=== PATIENT | female | born 1995 | race Caucasian/White ===

== ENCOUNTER 2021-10-03 15:41 | Outpatient (CLI) | payer BC, SELFPAY ==
[2021-10-03 18:48] LABS: TSH With Reflex to FT4* 0.598 uIU/mL (0.270-4.200)
[2021-10-03 18:49] LABS: Hepatitis B Surface Antigen* Negative (Negative)
[2021-10-03 19:13] LABS: HIV 1/2/P24 Combo Screen* Negative (Negative); Hepatitis C Virus Antibody* Negative (Negative)
[2021-10-03 19:17] LABS: Chlamydia DNA Amplified* NOT DETECTED (No Detected); GC DNA Amplified* NOT DETECTED (No Detected)
[2021-10-05 14:44] LABS: Rubella Antibody IgG 30.5 IU/mL
[2021-10-05 19:27] LABS: Rapid Plasma Reagin (RPR) Non Reactive (Non Reactive)
== END 2021-10-03 15:42 | disposition home or self-care (01) ==
PROVIDERS: Visit Provider Advanced Practice Midwife
DX: Z34.91 Encounter for supervision of normal pregnancy, unspecified, first trimester (principal); Z3A.11 11 weeks gestation of pregnancy
CPT/HCPCS: 76801; 76817; 84443; 86592; 86703; 86762; 86787; 86803; 86850; 86900; 86901; 87086; 87340; 87491; 87591

== ENCOUNTER 2021-12-04 14:16 | Outpatient (CLI) | payer BC, SELFPAY ==
--- OUTSIDE RECORDS SUMMARY | 2021-12-04 14:18 | XMS_ITS | Clinical Summary ---
:1995 Author Organization [facility] [place] [address] Care Team Providers Name Role Phone Unavailable Primary Care Provider Unavailable Allergies No known active allergies Medications Medication Sig Dispensed Refills Start Date End Date Status NebulizersIndications: As directed. For home use. Length of need: lifetime 1 Kit 0 11/19/2010 Active Unspecified asthma(493.90) Portable nebulizer with robin akilah option for travel/events like dance methylphenidate Take 1 tablet by 0 07/05/2012 Active (CONCERTA) 54 mg ER mouth once daily. tablet etonogestrel subdermal Inject 1 Device 1 Device 0 12/10/2012 Active implant (NEXPLANON) 68 subdermal one mg implantIndications: time. Nexplanon insertion montelukast (SINGULAIR) Take 1 tablet by 90 tablet 3 3 Active 10 mg tablet mouth at bedtime. fluticasone-salmeterol Inhale 1 Puff by 1 Inhaler 5 01/19/2013 Active (ADVAIR DISKUS) 250-50 mouth every 12 mcg/Dose diskus inhaler hours. albuterol (PROVENTIL) Inhale 3 mL via a 1 box 0 03/14/2013 Active 0.083 % neb nebulizer every 4 solutionIndications: hours if needed Unspecified for Shortness Of asthma(493.90) Breath. albuterol HFA Inhale 2 Puffs by 2 Inhaler 0 03/14/2013 Active (PRO-AIR,VENTOLIN,PROVE mouth 4 times NTIL) 90 mcg/actuation daily if needed. inhaler predniSONE (DELTASONE) Take 1 tablet by 0 03/12/2013 Active 20 mg tablet mouth 2 times daily with meals. Active Problems Problem Noted Date Attention deficit disorder without mention of hyperact ivity 11/03/2012 Adjustment disorder with mixed anxiety and depressed m ood 11/03/2012 Unspecified constipation 08/02/2007 Unspecified asthma(493.90) 06/18/2006 Immunizations Name Administration Dates Next Due DTaP 10/11/2001, 04/13/1998, 03/27/1997, 02/10/1997, 01/06/1997 HIB-HepB (Comvax) 10/23/1997, 02/10/1997, 01/06/1997 Hepatitis A (Peds) 12/07/2008, 10/11/2007 Human Papilloma Virus Vaccine 10/11/2009, 12/07/2008, 2007 Inactivated Polio Vaccine 10/11/2001 Influenza A (H1N1), Inactivated 01/05/2009 Influenza, RIV3 (Age =>18 Years) 12/11/2015 MMR 10/04/2001, 10/23/1997 Meningococcal Vaccine (Menactra) 10/11/2007 Oral Polio Vaccine 04/24/1997, 02/10/1997, 01/06/1997 Tdap 10/11/2007 Family History Medical History Relation Name Comments Good Health Father Good Health Mother Relation Name Status Comments Father Mother Social History Tobacco Use Types Packs/Day Years Used Date Passive Smoke Exposure - Never Smoker Smokeless Tobacco: Never Used Tobacco Cessation: Counseling Given: Yes Comments: parents outside Alcohol Use Standard Drinks/Week Comments No 0 (1 standard drink = 0.6 oz pure alcoho l) Sex Assigned at Date Recorded Not on file Obstetrics History Last Filed Vital Signs Vital Sign Reading Time Taken Comments Blood Pressure 122/80 12/11/2015 1:26 PM CDT Pulse 79 12/11/2015 1:26 PM CDT Temperature 36.8 ??C (98.2 ??F) 03/16/2013 6:30 PM CANVAS SHRINKER Respiratory Rate - - Oxygen Saturation 100% 12/11/2015 1:26 PM CDT Inhaled Oxygen Concentration - - Weight 56.2 kg (123 lb 12.8 oz) 12/11/2015 1:26 PM CDT Height 161 cm (5' 3.39) 12/11/2015 1:26 PM CDT Body Mass Index 21.66 12/11/2015 1:26 PM CDT Plan of Treatment Health Maintenance Due Date Last Done Comments COVID-19 vaccine series (#1) 04/09/1997 Hepatitis C screening for age 18-79 2014 BMI (ht and wt on same day) for age 1012/10/2016 12/11/2015 18+ Depression screening for age 12+ 12/10/2016 12/11/2015 Pap test for age 21-65 2017 Tetanus booster 10/10/2017 10/11/2007 Influenza for age 9-49 10/24/2021 12/11/2015, 01/05/2009 Tdap Completed 10/11/2007 HPV series for age 9-26 Completed 10/11/2009, 12/07/2008, 10/11/2007 Results Not on filefrom Last 3 Months Insurance Payer Benefit Plan / Subscriber ID Effective Dates Phone Addre ss Type Group BLUE [employer]OSS [employer] OF [id number] 2019-Present [address] [place] [address] [id number] ([address]) [place]EVENSON [id number]
== END 2021-12-04 14:17 | disposition home or self-care (01) ==
LOC: US 14:17
PROVIDERS: Visit Provider Pediatrics Neonatal-Perinatal Medicine
DX: O98.519 Other viral diseases complicating pregnancy, unspecified trimester (principal); U07.1 COVID-19; Z3A.20 20 weeks gestation of pregnancy
CPT/HCPCS: 76811

== ENCOUNTER 2022-02-04 14:03 | Outpatient (CLI) | payer BC, SELFPAY ==
[2022-02-07 02:47] LABS: Rapid Plasma Reagin (RPR) Non Reactive (Non Reactive)
== END 2022-02-04 14:04 | disposition home or self-care (01) ==
LOC: NFLDREF 15:03
PROVIDERS: Visit Provider Advanced Practice Midwife
DX: Z34.93 Encounter for supervision of normal pregnancy, unspecified, third trimester (principal); Z3A.29 29 weeks gestation of pregnancy
CPT/HCPCS: 86592

== ENCOUNTER 2022-03-04 12:09 | Outpatient (CLI) | payer BC, SELFPAY ==
--- NOTE | 2022-03-04 12:15 | CRLHL7_ITS ---
For Patients: As a result of the Century Cures Act, medical imaging exams and procedure reports are released immediately into your electronic medical record. You may view this report before your referring provider. If you have questions, please contact your health care provider. INDICATION: GROWTH, COVID IN COMPARISON: 10/03/2021 TECHNIQUE: Real time prather scale imaging of the fetus was performed. FINDINGS: Sonographic imaging demonstrates a single living intrauterine gestation. Fetus demonstrates a regular cardiac rate of 157 beats per minute. Fetus has a vertex position. The placenta lies anteriorly. Amniotic fluid volume appears normal and there is a single deepest vertical pocket: 3.5 cm. The estimated weight is 1983gm which lies at the 29th %. BPD 54th percentile. HC 13th percentile. AC 37th percentile. FL 23rd percentile. The HC/AC ratio measures 1.04 range (0.96-1.12). IMPRESSION: Sonographic gestational age 32 weeks 5 days and sonographic due date 04/24/2022. Good correlation with dates. Normal interval growth. Estimated weight 29th percentile. Abdominal circumference 37th percentile. Dictated by Christiano Davis MD @ 03/04/2022 1:09:57 PM (Electronically Signed)
== END 2022-03-04 12:10 | disposition home or self-care (01) ==
LOC: US 12:12
PROVIDERS: Visit Provider Advanced Practice Midwife
DX: O98.519 Other viral diseases complicating pregnancy, unspecified trimester (principal); U07.1 COVID-19; Z3A.32 32 weeks gestation of pregnancy
CPT/HCPCS: 76816

== ENCOUNTER 2022-03-26 12:12 | Outpatient (CLI) | payer BC, SELFPAY ==
--- NOTE | 2022-03-26 12:15 | CRLHL7_ITS ---
For Patients: As a result of the Cures Act, medical imaging exams and procedure reports are released immediately into your electronic medical record. You may view this report before your referring provider. If you have questions, please contact your health care provider. INDICATION: Growth, COVID in . COMPARISON: OB ultrasound 03/04/2022. TECHNIQUE: Ultrasound OB pelvis with real time prather scale imaging and color Doppler analysis. FINDINGS: Sonographic imaging demonstrates a single living intrauterine gestation. The fetus has a regular cardiac rate of 149 beats per minute. The fetus has a cephalic orientation. The placenta lies anteriorly. Amniotic fluid volume appears normal with single deepest pocket measuring 4.3 cm. The composite ultrasound gestational age is calculated at 36 weeks 1 day with an estimated sonographic due date of 04/22/2022. The estimated weight is 3048 grams which lies at the 74th percentile. The following biometric measurements were obtained: Biparietal diameter: 8.89 cm (36 weeks 0 days) (57th percentile) Head circumference: 31.57 cm (35 weeks 3 days) (11th percentile) Abdominal circumference: 34.26 cm (38 weeks 1 day) (greater than 97th percentile) Femur length: 6.80 cm (35 weeks 0 days) (20th percentile) The HC/AC ratio measures: 0.92 (range 0.92-1.08) IMPRESSION: 1. Single living intrauterine gestation in cephalic position with heart rate 149 beats per minute. 2. Ultrasound gestational age 36 weeks 1 day with sonographic due date 04/22/2022. This is concordant with the clinical gestational age of 36 weeks 0 days. 3. Estimated weight at the 74th percentile. Abdominal circumference is greater than 97th percentile. Dictated by Tamiko Moya MD @ 03/26/2022 8:52:38 PM (Electronically Signed)
== END 2022-03-26 12:13 | disposition home or self-care (01) ==
LOC: US 12:13
PROVIDERS: Visit Provider Advanced Practice Midwife
DX: O98.519 Other viral diseases complicating pregnancy, unspecified trimester (principal); U07.1 COVID-19; Z3A.36 36 weeks gestation of pregnancy
CPT/HCPCS: 76816; 87081; 87653

== ENCOUNTER 2022-04-01 14:33 | Outpatient (CLI) | payer BC, SELFPAY ==
[2022-04-01 19:49] LABS: Aspartate Amino Transferase* 29 U/L (12-35); Creatinine* 0.8 mg/dL (0.5-1.5); Estimated Glomerular Filt Rate 105 ml/min
[2022-04-01 19:50] LABS: Alanine Aminotransferase* 16 U/L (4-35); Blood Urea Nitrogen* 13 mg/dL (5-24)
[2022-04-01 23:08] LABS: Total Protein Urine > 800 mg/dL
[2022-04-01 23:10] LABS: Creatinine Urine 185.6 mg/dL
[2022-04-04 02:09] LABS: Rapid Plasma Reagin (RPR) Non Reactive (Non Reactive)
== END 2022-04-01 14:34 | disposition home or self-care (01) ==
PROVIDERS: Visit Provider Advanced Practice Midwife
DX: O16.3 Unspecified maternal hypertension, third trimester (principal)
CPT/HCPCS: 82565; 82570; 84156; 84450; 84460; 84520; 86592

== ENCOUNTER 2022-04-02 15:37 | Inpatient (IN) | payer BC, OTHER, SELFPAY ==
[2022-04-02] VITALS (19 sets, daily range): BP systolic 128–162; BP diastolic 58–108; PULSE 75–106; RESP 16; TEMP 36.6–36.9; O2SAT 97; BMI 47.0
[2022-04-02 15:52] LABS: Appearance Urine Cloudy (Clear); Bilirubin Urine Negative (Negative); Blood Urine Trace-intact (Negative); Color Urine Yellow (Yellow); Glucose Urine Negative (Negative); Ketones Urine Trace (Negative); Leukocyte Esterase Urine Negative (Negative); Nitrite Urine Negative (Negative); Protein Urine 3+ (Negative); Specific Gravity Urine 1.025 (1.000-1.030); Urobilinogen Urine 0.2 (0.2-1.0); pH Urine 6.5 (5.0-8.5)
[2022-04-02 16:06] LABS: Bacteria Urine Moderate; Calcium Oxalate Crystals Urine Few; RBC Urine 0-2 (0-2); Squamous Epithelial Cell Urine Moderate (None-Few)
[2022-04-02] MEDS: miSOPROStoL 25 MCG/0.25 TABLET VAGINAL ×2 (16:18→20:17)
--- NOTE | 2022-04-02 16:27 | P.LDBA_ITS ---
Subjective History of Present Illness Date Seen: 04/02/22 Narrative: Flora is a 26 year old at 37 0/7 weeks being admitted to Labor and Delivery for elevated blood pressures which were noted on 04/01/22 in the clinic and again today on 04/02/22. She had an elevated TP Cr. Ratio of 4.3 on 04/01, repeat is ordered today but is not yet resulted. Today her blood pressure in clinic was 142/70, repeat BP was 140/70. Her full history and physical was done on 04/01/2022 by Prince Castillo CNM. OB problem list:? 1.? Depression & anxiety -stable on cymbalta 2.? ADD -stopped concerta earlier this year for -at 16 weeks has noticed some impact of not taking but feels its tolerable -Resources about Concerta w/ and given -Discussed having a plan for 3.? Hx of asthma, needed inhaler w/ covid 4.? Covid in early Plan Level II:completed Growth US at 32 weeks: vertex, SDP 3.5, FHR 157, EFW 29% Growth US at 36 weeks: vertex, SDP 4.3, FHR 149, EFW 74%, AC >97% 5. Headaches Reglan 6. U/S at 36wks, AC >97% (EFW 74%). Discussed with Dr. Spicer. Can consider repeating growth at 39-40 weeks if still . ? OB - Problem Based A/P Additional Plan (1) Encounter for induction of labor: Status: Acute (2) Preeclampsia: Problem details: Elevated blood pressure in clinic 04/01 and 04/02, PC ratio 4.3 Status: Acute Plan ASSESSMENT:? 26 at 37 0/7 weeks gestation? complicated by:?Depression and anxiety, ADD, Asthma (occasional inhaler), Covid in early , and Headaches. Labor type: Induced? Category 1 FHR pattern.?? Labor complicated by: Preeclampsia newly diagnosed today GBS negative? ? PLAN:? 1. Routine intrapartum cares as ordered. Plan induction with Cytotec per protocol.? 2. Monitoring per policy, continuous? 3. Planning unmedicated . Desires water . Consent not yet signed, will obtain. Patient is not a candidate if requires medication for her blood pressure. Hep C negative. Candidate for analgesia of choice if desired.?? 4. Patient encouraged to reposition and ambulate to promote physiologic labor and .? 5. Recently diagnosed with PreE based on elevated BP in clinic yesterday and today and elevated PC ratio of 4.3. On admission to L&D had severe range BP's but normal on repeat. Notified OB of admission and treatment plan. Pt would require transfer of care if BP requires medication treatment. Patient is aware of plan. Repeated labs WNL, PC ratio pending. 6. Anticipate ? Delivery/Labor/Induction Plan Plan: induction Induction method: per misoprostol protocol OB Exam Physical Exam Vital signs: Pulse BP Pulse Ox 82 128/58 L 97 04/02/22 15:32 04/02/22 15:32 04/02/22 14:36 Narrative: Vitals Reviewed? Psychiatric:? Alert and oriented x3? HEENT:? Normocephalic, atraumatic? Neck:? Supple?? Lungs:? Clear to auscultation bilaterally? Heart:? Regular rate and rhythm, no murmur, rub or gallop? Abdomen:? Soft, nontender, and gravid. Vertex by Joao's, confirmed with cervical exam.? Extremities: 2+ pitting edema to lower extremities noted. Detailed Labor and Delivery Exam Patient Gravid: Yes Dilation (cm): 0 (0.5 cm) Effacement (%): 25 Cervix position: mid Consistency: firm Contraction Frequency: rare Tachysystole: No Fetus (Single) Station: -3 Amniotic Membrane Status: intact Amniotic Membrane Fluid Description: Clear Monitor Accelerations: Absent Monitor Decelerations: None Senior Care Variability: Moderate (6-25)
[2022-04-02] MEDS: CALCIUM CARBONATE 500 MG CHEW PO ×3 (16:46→19:30)
[2022-04-02 17:01] LABS: Basophils Percent Auto 0.5 % (0.0-3.0); Eosinophils Percent Auto 4.1 % (0.0-7.0); Hemoglobin* 12.3 gm/dL (12.0-16.0); Immature Granulocytes Pct Auto 0.2 %; Lymphocytes Percent Auto 18.1 % (20-44); Mean Corpuscular HGB Conc 33 gm/dL (32-36); Mean Corpuscular Hemoglobin 28 pg (26-34); Mean Corpuscular Volume 84 fL (80-100); Monocytes Percent Auto 7.9 % (0.0-11.0); Neutrophils Percent Auto 69.2 % (42.0-72.0); Platelet Count* 249 K/uL (140-440); RDW Coefficient of Variation % 13.2 % (11.5-15.5); Red Blood Count 4.39 m/uL (4.00-5.20); White Blood Count* 13.27 K/uL (4.50-11.00)
[2022-04-02 17:02] LABS: Slide Review Reflex No
[2022-04-02 17:15] LABS: Total Protein Urine 1590 mg/dL
[2022-04-02 17:18] LABS: Alanine Aminotransferase* 15 U/L (4-35); Aspartate Amino Transferase* 30 U/L (12-35); Blood Urea Nitrogen* 12 mg/dL (5-24); Creatinine* 0.7 mg/dL (0.5-1.5); Est. Creatinine Clearance* 97.17; Estimated Glomerular Filt Rate 123 ml/min
[2022-04-02 17:39] LABS: SARS PCR* Negative SARS-CoV-2 (Negative)
[2022-04-02 18:32] LABS: Creatinine Urine 184.5 mg/dL
[2022-04-02] MEDS: LACTATED RINGERS 1000 ML 1,000 ML 600 ML IV (20:18)
[2022-04-03] VITALS (13 sets, daily range): BP systolic 125–172; BP diastolic 73–98; PULSE 71–86; RESP 20; TEMP 36.6–37.1
[2022-04-03] MEDS: miSOPROStoL 25 MCG/0.25 TABLET VAGINAL ×3 (04:04→13:52)
[2022-04-03 06:47] LABS: Hematocrit 33.4 % (33.0-51.0); Hemoglobin* 11.1 gm/dL (12.0-16.0); Mean Corpuscular HGB Conc 33 gm/dL (32-36); Mean Corpuscular Hemoglobin 28 pg (26-34); Mean Corpuscular Volume 85 fL (80-100); Platelet Count* 213 K/uL (140-440); Red Blood Count 3.94 m/uL (4.00-5.20); White Blood Count* 13.87 K/uL (4.50-11.00)
[2022-04-03 06:50] LABS: Slide Review Reflex No
[2022-04-03 07:05] LABS: Aspartate Amino Transferase* 24 U/L (12-35); Creatinine* 0.8 mg/dL (0.5-1.5); Est. Creatinine Clearance* 85.02; Estimated Glomerular Filt Rate 105 ml/min
[2022-04-03 07:06] LABS: Alanine Aminotransferase* 15 U/L (4-35); Blood Urea Nitrogen* 11 mg/dL (5-24)
--- NOTE | 2022-04-03 07:59 | PM.OBPNL ---
Documented by User: Krys Dave CNM 04/03/22 14:08 Subjective Time Seen by Provider: 07:59 Date Seen: 04/03/22 Narrative: Into room for introductions & to assume care Subjective:? Flora is coping well with labor pain/contractions. She is currently being supported by boyfriend Michael, Sister Maryam and Mom/Wildlife Rehabilitator Lainey.?Reports concerns regarding: process of IOL and how long it might take. Discussed options of cytotec and pitocin and recommended we plan on two more doses of cytotec, then consider switching to pitocin if the cervix is favorable. Flora is still undecided about pain management, she would like a waterbirth, but is also keeping her options open. Questions answered to her and her mother's satisfaction. ?She would like to continue with position changes and ambulation for comfort and pain management at this time.?? Objective Exam: Objective: VSS, afebrile General Appearance:? Calm, cooperative. ?No acute distress. ? Psychiatric Exam: Alert and oriented, appropriate affect Abdomen: Gravid Ctx: ?irregular, Mild FHTs: ?Baseline: 145 ? Variability: Moderate ? Accels: absent ? ?Decels: ?absent Membranes: Intact? Cytotec x3? Vital Signs: Last Vital Signs Temp 98 F 04/03/22 03:47 Pulse 76 04/03/22 03:59 Resp 16 04/02/22 16:12 BP 138/85 04/03/22 03:59 Pulse Ox 97 04/02/22 14:36 Plan Plan: Assessment:?? 26 at 37w 1d gestation?? Patient is coping well with challenges of IOL.?? Labor type: Induced, IOL ongoing Category 1 FHR pattern.?? complicated by: Pre-Eclampsia Plan:?? Continue with routine intrapartum cares as ordered.?? Cytotec protocol Patient encouraged to change positions to promote physiologic labor and .?? Candidate for analgesia of choice. Epidural and Nonpharmacologic comfort measures per patient preference. Patient plans for waterbirth? Monitoring: continuous per protocol IV start per protocol Anticipate progress to active labor and NVD. ? Documented by User: Kinjal Gallagher CNM 04/03/22 22:23 Objective Exam: Objective: VSS, afebrile General Appearance:? Calm, cooperative. ?No acute distress. ? Psychiatric Exam: Alert and oriented, appropriate affect Abdomen: Gravid Ctx: ?irregular, Mild FHTs: ?Baseline: 145 ? Variability: Moderate ? Accels: absent ? ?Decels: ?absent Membranes: Intact? Cytotec x3? SVE: deferred Plan Plan: Assessment:?? 26 at 37w 1d gestation?? Patient is coping well with challenges of IOL.?? Labor type: Induced, IOL ongoing Category 1 FHR pattern.?? complicated by: Pre-Eclampsia Plan:?? Continue with routine intrapartum cares as ordered.?? Continue cytotec per protocol Patient encouraged to change positions to promote physiologic labor and .?? Candidate for analgesia of choice. Epidural and Nonpharmacologic comfort measures per patient preference. Patient plans for waterbirth? Monitoring: continuous per protocol IV start per protocol Anticipate progress to active labor and NVD. ?
[2022-04-03] MEDS: CALCIUM CARBONATE 500 MG CHEW PO ×3 (12:49→21:43)
--- NOTE | 2022-04-03 19:17 | PM.OBPNL ---
Subjective Date Seen: 04/03/22 Narrative: Subjective:? Flora is coping well with IOL and reports little to no discomfort. She is currently being supported by her boyfriend Michael.? Denies concerns.?She would like to continue with position changes, ambulation and sleep for comfort and pain management at this time. Her cervix has had little change with the 5 doses of cytotec. Discussed options for pitocin or cervidil at this time, but recommended cervidil to continue to soften cervix. Pt agreeable. Will reassess in the morning. Encouraged Flora to sleep tonight with cervidil. Questions answered to her satisfaction. ? Objective Exam: Objective: VSS, afebrile General Appearance:? Calm, cooperative. ?No acute distress. ? Psychiatric Exam: Alert and oriented, appropriate affect Abdomen: Gravid Ctx: ?irregular, 2-4 min apart. Mild FHTs: ?Baseline: 145 ? Variability: Moderate ? Accels: Present ? ?Decels: ?Absent SVE: 0.5cm/10%/-3 Membranes: Intact? Cytotec x5 complete? Vital Signs: Last Vital Signs Temp 98.8 F 04/03/22 17:39 Pulse 76 04/03/22 18:12 Resp 20 04/03/22 17:39 BP 143/82 H 04/03/22 18:12 Pulse Ox 97 04/02/22 14:36 Plan Plan: Assessment:?? 26 at 37w 1d gestation?? Patient is coping well with challenges of IOL.?? Labor type: Induced, IOL ongoing Category 1 FHR pattern.?? complicated by: Pre-Eclampsia Plan:?? Continue with routine intrapartum cares as ordered.?? Cervidil per protocol Patient encouraged to change positions to promote physiologic labor and , and sleep tonight if she can.?? Candidate for analgesia of choice. Patient plans for waterbirth? Monitoring: continuous per protocol IV start per protocol Anticipate progress to active labor and NVD.
[2022-04-03] MEDS: DINOPROSTONE 10 MG VAGINAL INSERT VAGINAL (20:01)
[2022-04-03] MEDS: MORPHINE 10 MG/ML inj IM (22:25)
[2022-04-03] MEDS: hydrOXYzine pamoate 25 MG CAPSULE 100 MG PO (22:26)
[2022-04-04] VITALS (11 sets, daily range): BP systolic 104–153; BP diastolic 61–87; PULSE 73–93; RESP 16–20; TEMP 36.5–36.8
[2022-04-04] MEDS: ACETAMINOPHEN 500 MG TABLET 1000 MG PO ×2 (03:19→18:41)
--- NOTE | 2022-04-04 09:10 | P.OBPN_ITS ---
Subjective Date Seen: 04/04/22 Narrative: Cervidil pulled at 0805 this am. She is now feeling some crampy like c ontractions every 5 minutes in her lower abdomen and low back. Options given for repeating Cytotec after 12 hours, Pitocin alone, cook catheter or cook with Pitocin. Encouraged her to consider Pitocin or cook catheter and Pitocin as her blood pressures are elevated but not treatable. Discussed that it would be good to be heading toward delivery to try to help prevent severe features. She would like to do the Pitocin with the cook catheter. The cook was placed without difficulty with 80ml in both balloons. She is tolerating that well so far. The Pitocin was started after the cook was placed per unit policy. Objective Vital Signs: Last Vital Signs Temp 97.9 F 04/04/22 08:13 Pulse 73 04/04/22 08:13 Resp 16 04/04/22 08:13 BP 153/80 H 04/04/22 08:13 Pulse Ox 97 04/02/22 14:36 Pelvic Exam Dilation (cm): 1 Effacement (%): 30 Station: -3 Contractions Monitor mode: External Contraction Frequency: 3-5 Contraction pattern: Regular Contraction intensity: Mild Pitocin Rate (mU/min): 1 Assessment Assessment: induction ongoing and early labor Station: -3 Status: Category l Heart Rate Baseline: 140 Senior Care Variability: Moderate (6-25) Monitor Accelerations: Absent Monitor Decelerations: None Plan Plan: Will continue with cook catheter in place for 12 hours with 80ml in each balloon if she tolerates it. Can reevaluate if she doesn't tolerate it. Increase Pitocin per unit policy. Monitor blood pressures and signs of severe features. Candidate for analgesia of choice. Planning unmedicated .? Anticipate ? Expectant management at this time.? Continuous monitoring per unit policy?
[2022-04-04] MEDS: OXYTOCIN 30 unit/500 ML in NS 30 UNIT/500 ML BAG IVPB (09:27)
[2022-04-04] MEDS: polyethylene glycoL 3350 17 GM PACK PO (10:37)
[2022-04-04] MEDS: LACTATED RINGERS 1000 ML 1,000 ML 120 ML IV (15:10)
--- NOTE | 2022-04-04 16:58 | P.OBPN_ITS ---
Subjective Date Seen: 04/04/22 Narrative: Flora states that she is feeling more frequent and longer contractions. They have been difficult to trace because she has been moving around, changing positions and ambulating in the halls. She is feeling them ever 3 min and feels they are a little more painful but still able to talk thought them and coping well. She is supported by her , sister and mom who is her data analytics specialist. She is planning on a bath at this time to help her relax. She has ate small snacks. I was unable to pull out the cook catheter with a little pressure. Will plan to continue to increase the Pitocin as able and remove the cook catheter around 2100. Objective Vital Signs: Last Vital Signs Temp 97.9 F 04/04/22 08:13 Pulse 77 04/04/22 15:03 Resp 16 04/04/22 08:13 BP 127/78 04/04/22 15:03 Pulse Ox 97 04/02/22 14:36 Pelvic Exam Dilation (cm): 1 Effacement (%): 30 Station: -3 Contractions Monitor mode: External Contraction Frequency: 3-5 Contraction pattern: Regular Contraction intensity: Mild Pitocin Rate (mU/min): 6 Assessment Assessment: induction ongoing and early labor Station: -3 Status: Category l Heart Rate Baseline: 145 Usp Variability: Moderate (6-25) Monitor Accelerations: Absent Monitor Decelerations: None Plan Plan: Continue with cook catheter and Pitocin. Increase Pitocin as able per policy. Will remove Cook 12 hours after placement. Candidate for analgesia of choice. Coping well with contractions. Monitor blood pressures. Anticipate .
[2022-04-04] MEDS: MORPHINE 10 MG/ML inj IM (23:32)
[2022-04-04] MEDS: hydrOXYzine pamoate 25 MG CAPSULE 100 MG PO (23:33)
[2022-04-04] MEDS: miSOPROStoL 25 MCG/0.25 TABLET VAGINAL (23:33)
[2022-04-04] MEDS: CALCIUM CARBONATE 500 MG CHEW PO (23:33)
[2022-04-05] VITALS (63 sets, daily range): BP systolic 101–169; BP diastolic 53–93; PULSE 71–140; RESP 16–18; TEMP 36.4–36.8; O2SAT 92–100
[2022-04-05] MEDS: LACTATED RINGERS 1000 ML 1,000 ML 117 ML IV
--- NOTE | 2022-04-05 03:38 | PM.OBPNL ---
Subjective Date Seen: 04/05/22 Narrative: Flora has been able to sleep through contractions and denies feeling except occasionally with movement. Her contractions have spaced to every 8-10 min. We had previously talked about 25mcg vs 50mcg and the risks and benefits of both. She would like to proceed with 50mcg dose. SVE was deferred at this time. Objective Vital Signs: Last Vital Signs Temp 98.1 F 04/05/22 02:03 Pulse 75 04/05/22 03:00 Resp 16 04/05/22 02:03 BP 136/68 04/05/22 03:00 Pulse Ox 97 04/02/22 14:36 Pelvic Exam Dilation (cm): 3 Effacement (%): 50 Station: -3 Contractions Monitor mode: External Contraction Frequency: 8-10 Contraction pattern: Irregular Contraction intensity: Mild Assessment Assessment: induction ongoing Station: -3 Status: Category l Heart Rate Baseline: 125 Residential Variability: Moderate (6-25) Monitor Accelerations: Present Monitor Decelerations: None Plan Plan: Continue with cytotec induction. Candidate for analgesia of choice. Planning unmedicated .? Monitor blood pressures. Anticipate ?
[2022-04-05] MEDS: miSOPROStoL 25 MCG/0.25 TABLET 50 MCG PO ×2 (03:54→07:48)
[2022-04-05] MEDS: LACTATED RINGERS 1000 ML 1,000 ML 125 ML IV (07:30)
--- NOTE | 2022-04-05 07:46 | P.OBPN_ITS ---
Subjective Date Seen: 04/05/22 Narrative: Flora slept well overnight and had only occasional contractions. She is feeling fairly well rested this morning. SVE this morning was unchanged. Discussed the options of Cytotec 25mcg, Cytotec 50mcg or restarting Pitocin. She would like to continue with the Cytotec and would like to proceed with the 50mcg dose. We will then proceed to Pitocin after that. She is comfortable with this plan and her questions were answered. Objective Vital Signs: Last Vital Signs Temp 98.1 F 04/05/22 04:01 Pulse 72 04/05/22 07:12 Resp 18 04/05/22 04:01 BP 119/77 04/05/22 07:12 Pulse Ox 97 04/02/22 14:36 Pelvic Exam Dilation (cm): 3 Effacement (%): 50 Station: -3 Contractions Monitor mode: External Contraction pattern: Irregular Contraction intensity: Mild Assessment Assessment: induction ongoing Station: -3 Status: Category l Heart Rate Baseline: 125 Senior Living Variability: Moderate (6-25) Monitor Accelerations: Present Monitor Decelerations: None Plan Plan: Continue with Cytotec induction with Pitocin to follow. Monitor blood pressures.
--- NOTE | 2022-04-05 14:17 | PM.OBPNL ---
Subjective Date Seen: 04/05/22 Narrative: Flora is requesting a SVE to check for any progression. She is feeling discouraged as this has been such a long process. She was started on Pitocin around 1200. She is not feeling much for contractions and only occasional contractions are tracing on the monitor. She was found to be more effaced than previously with a bulging bag. This was encouraging to her. A plan was made to increase the Pitocin every 30 min as able per contraction pattern and tolerance. She is agreeable to this plan and feels more optimistic. Her blood pressures continue to be 120-140/70-80 and denies symptoms. Objective Vital Signs: Last Vital Signs Temp 97.6 F 04/05/22 07:59 Pulse 81 04/05/22 14:16 Resp 16 04/05/22 07:59 BP 144/87 H 04/05/22 14:16 Pulse Ox 97 04/02/22 14:36 Pelvic Exam Dilation (cm): 3 Effacement (%): 80 Station: -3 Contractions Monitor mode: External Contraction pattern: Irregular Contraction intensity: Mild Pitocin Rate (mU/min): 3 Assessment Assessment: induction ongoing Station: -3 Status: Category l Heart Rate Baseline: 125 Banquet Lead Variability: Moderate (6-25) Monitor Accelerations: Present Monitor Decelerations: None Plan Plan: Continue with Pitocin induction per policy. Monitor blood pressures. Encourage position changes for positioning and comfort.
[2022-04-05] MEDS: CALCIUM CARBONATE 500 MG CHEW PO (18:03)
[2022-04-05] MEDS: LACTATED RINGERS 1000 ML 1,000 ML 114 ML IV (18:36)
[2022-04-05] MEDS: ACETAMINOPHEN 500 MG TABLET 1000 MG PO (20:49)
[2022-04-05] MEDS: fentaNYL 100 MCG/2 ML inj IVP (21:35)
--- NOTE | 2022-04-05 22:11 | PM.OBPRCVD ---
Documented by User: Gloria Castillo CNM 04/06/22 00:06 Procedure Delivery date: 04/05/22 Procedure Done: Global Procedure Details: Patient is a 26 year-old G2 now P1 admitted on 04/02/22 at Weeks, 37.0 Days gestation for IOL for pre-eclampsia.? Cervical exam on admission was 0 cm/25 % effaced/-3 station with membranes intact in vertex presentation.? Contractions were every absent per toco and patient report.? heart rate demonstrated baseline 145 bpm with moderate variability, + accelerations, - decelerations; a category 1 tracing.? SROM occurred at 1709 with clear fluid.?Flora had a very prolong induction. Her induction was started with Cytotec. After her allotted doses she then received Cervidil. After this was removed a cook catheter was placed with IV Pitocin titration. She then received additional doses of Cytotec followed by IV Pitocin titration. She eventually SROM after which she started having regular, painful contractions. The Pitocin was discontinued after a few decelerations and her body took over and was amrani regularly on its own. She labored on the toilet and standing for a while before moving to the tub. She labored in the tub. Once complete and feeling the urge to push, she pushed effectively. She pushed to . At that time there was a large break in contractions. At the next contraction she delivered. Baby tolerated pushing well. Once we were unable to trace baby on the monitor so Doppler was used. FHR was in the 140's during this time. ?? Labor Analgesia:? None? ?? Pitocin:? Yes ?? Labor onset:? 1708? ?? Complete:? 1910? ?? Pushing:? 1916? ?? heart tones during second stage were category II. Baseline was 120's, +accels, variable decels, moderate variability..? ?? At 2006 a viable male delivered in vertex direct OA presentation over intact perineum via spontaneous vaginal delivery.? Infant was placed on maternal abdomen.? Cord was clamped and cut after a >5 minute delay.? Nose and mouth were bulb suctioned.? weight pending.? 8 at 1 minute and 8 at 5 minutes.? Shoulder dystocia: no.? Nuchal cord: no.? ?? At 30 minutes after the placenta had not detached for delivery. Rectal cytyec was placed. At 40 minutes after the MD enterprise integration developer was notified and asked to evaluate. See her note for details. There was a cord evulsion and manual removal was necessary. Placenta delivered at 2143 with a 3 vessel cord.?Evaluation of the placenta by me was suspicious for retained products of conception. An order for an abdominal US was placed. The technicians report was highly suspecious for retained placenta and showed a large blood clot. Dr. Grullon was notified. Flora's hemoglobin also decreased from 11.1 to 8.1. She is symptomatic with increased heartrate, pale, dizzy, and clammy. Dr. Grullon did not want blood products ordered at this time and states that she will evaluate when she gets here. ?? Mother and infant were stable after delivery.? ?? Lacerations:? Pre Dr. Grullon's evaluation and report, bilateral periurethral that were hemostatic and not needing repair. ?? Blood loss: 1100 mL.? Blood loss measurement type: EBL and QBL (100ml EBL in the tub)? Sponge and needles counts are correct.? Events: Pre-Eclampsia and Labor Induction Intrapartal Events: Labor Induction Induction method: other (cytotec, cervidil, cook catheter with pitocin, cytotec, and pitocin) Delivery monitor: external FHT and external uterine Route of delivery: Episiotomy description: None Laceration description: Periurethral - 1st Degree (hemostatic and not needing repair) Estimated blood loss (mL): 1,100 Anesthesia type: None Disposition: floor Infant Gender: Female presentation: vertex Placental Delivery Description: Manual Removal Cord Description: 3 Vessels total score - 1 minute: 8 total score - 5 minute: 8 Infant A Position: Other (straight OA) OB Vag Delivery Procedures Additional Procedures D&C: Yes Documented by User: Gloria Grullon, DO 04/06/22 00:38 Procedure Procedure Details: Patient is a [] year-old G[] P[] admitted on [] at [] at [] Weeks, [] Days gestation for [].? Cervical exam on admission was [] cm/[] % effaced/[] station with membranes [intact/ruptured] in [vertex] presentation.? Contractions were every [] minutes.? heart rate demonstrated baseline [] bpm with [moderate] variability, [+] accelerations, [-] decelerations; a category [1] tracing.? [SROM/AROM/PROM] occurred at [] with [clear/meconium] fluid.? ?? Labor Analgesia:? [Fentanyl/Narcotics/ITN/Epidural/None]? ?? Pitocin:? [Yes/No]? ?? Labor onset:? []? ?? Complete:? []? ?? Pushing:? []? ?? heart tones during second stage were [].? ?? At [] a viable [male/female] infant delivered in vertex [] presentation over [intact perineum] via [spontaneous] vaginal delivery.? was placed on maternal abdomen.? Cord was clamped and cut after a 30-60 second delay.? Nose and mouth were bulb suctioned.? Infant weight pending.? [] at 1 minute and [] at 5 minutes.? Shoulder dystocia: [no].? Nuchal cord: [no].? ?? Placenta delivered manually after >50 minute delay between delivery and attempt to deliver placenta. Cord was intentionally evulsed so as to minimize introduction of contaminated cord back into uterus during the manual removal. Placenta was closely inspected to ensure that placenta was completely removed with all trailing membranes. + 3 vessel cord.? ?? Mother and were stable after delivery.? ?? Lacerations:? [], repaired with [].? ?? Blood loss: [] mL.? Blood loss measurement type: []? Sponge and needles counts are correct.? OB Vag Delivery Procedures Additional Procedures Other: Yes (Manual removal of placenta required. ) Procedure Details: Patient delivered fetus at 2007pm. At 2049 it was determined that patient had retained placenta without evidence of spontaneous removal. Patient was given Fentanyl IV, cord was intentionally evulsed so as to not introduce the contaminated cord back into the uterus during attempt of manual removal. Once patient was relaxed with IV pain medication, successful removal of placenta and all trailing membranes was performed and placenta was inspected to ensure that the entire placenta was accounted for. Patient tolerated procedure well. Labia, vagina and perineum were then inspected to ensure that any tears or lacerations were addressed. + hemostasis at termination of delivery. Patient will be given IV antibiotics X 24 hours secondary to manual removal of placenta. QBL: 1100mL. Additional evaluation of placenta after CNM indicated possible portion of placenta retained and there was NO missing portions of placenta noted prior to taking patient to OR. Gloria Grullon DO
--- NOTE | 2022-04-05 22:33 | CRLHL7_ITS ---
For Patients: As a result of the Century Cures Act, medical imaging exams and procedure reports are released immediately into your electronic medical record. You may view this report before your referring provider. If you have questions, please contact your health care provider. INDICATION: MANUAL PLACENTAL REMOVAL, CHECK FOR POC COMPARISON: 03/26/2022 TECHNIQUE: Real-time prather-scale imaging of the pelvis was performed. FINDINGS: Residual placental tissue is noted at the anterior/superior aspect. Endometrium is diffusely heterogeneous. IMPRESSION: Retained placental tissue noted. Dictated by Christiano Davis MD @ 04/07/2022 10:52:07 AM (Electronically Signed)
[2022-04-05 23:11] LABS: Basophils Percent Auto 0.4 % (0.0-3.0); Eosinophils Percent Auto 0.4 % (0.0-7.0); Hematocrit 24.5 % (33.0-51.0); Hemoglobin* 8.1 gm/dL (12.0-16.0); Immature Granulocytes Pct Auto 0.2 %; Lymphocytes Percent Auto 6.1 % (20-44); Mean Corpuscular HGB Conc 33 gm/dL (32-36); Mean Corpuscular Hemoglobin 29 pg (26-34); Mean Corpuscular Volume 87 fL (80-100); Neutrophils Percent Auto 87.9 % (42.0-72.0); Platelet Count* 207 K/uL (140-440); RDW Coefficient of Variation % 13.7 % (11.5-15.5); Red Blood Count 2.83 m/uL (4.00-5.20); White Blood Count* 24.47 K/uL (4.50-11.00)
[2022-04-05 23:16] LABS: Slide Review Reflex Yes
[2022-04-06] VITALS (51 sets, daily range): BP systolic 62–151; BP diastolic 35–98; PULSE 80–116; RESP 12–22; TEMP 36.4–37.1; O2SAT 91–100
[2022-04-06] MEDS: LACTATED RINGERS 1000 ML 1,000 ML 114 ML IV (00:31)
[2022-04-06 04:40] LABS: Slide Review Acceptable Review (Acceptable)
--- NOTE | 2022-04-06 05:00 | PM.GSPRC ---
Operative Note Time Seen by Provider: 02:10 Date of procedure: 04/06/22 Pre-op diagnosis: hemorrhage Post-op diagnosis: hemorrhage Type of Procedure: Curettage Indications: Patient is a 26 yo who after delivery had retained placenta. Placenta was delivered by manual removal intact. CNM covering case was insistent on curettage secondary to patient fundus being persistently at umbilicus and patient having pain related to delivery.. Procedure Description: After discussing the risks and benefits of the procedure, the patient signed informed consent.? The operative site was confirmed and the patient was brought to the operating room and placed on the operating table in supine position.? The patient was then given spinal anesthesia secondary to patient being allowed to eat immediately after delivery, patient was not a safe candidate for sedation or intubation. Patient was then placed in stirrups with appropriate prep and drape in the usual sterile fashion.? A time-out was then performed. Speculum was placed to isolate the cervix. Anterior lip of cervix was grasped with ring forcep. Cervix was already dilated to allow for immediate curettage. Banjo curette was then used to systematically perform curettage of endometrial cavity and only clots were removed. Special attention was paid to anterior uterus secondary to that being the location of where the placenta was attached and NO tissue, placenta or membranes was retrieved. Clot was collected and sent to pathology for confirmation of diagnosis of retained clots in endometrium only. Wright was placed to drain bladder and procedure was complete. There was no additional procedure related blood loss to calculate and patient was then transported to the recovery area in stable condition. ? The patient tolerated the procedure well. Findings: Immediate enlarged uterus, blood clot debris in endometrium Anesthesia: spinal Surgeon: Gloria Grullon DO Estimated blood loss (mL): 25 Specimen: Other (endometrial contents of curettage ) Condition: stable Disposition: floor
[2022-04-06] MEDS: AMPICILLIN 2 GM in 0.9 % SODIUM CHLORIDE Mini-bag 100 ML IVPB ×3 (05:42→17:42)
[2022-04-06] MEDS: IBUPROFEN 600 MG TABLET PO ×2 (07:54→16:41)
[2022-04-06] MEDS: DOCUSATE SODIUM 100 MG CAPSULE PO (07:54)
--- NOTE | 2022-04-06 09:17 | W.ANESCHARGE ---
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
--- NOTE | 2022-04-06 10:04 | P.OBPN_ITS ---
OB - PN:Subj Subjective Date Seen: 04/06/22 Patient comments OB post-: other (Was having lightheadedness this morning, improved now since transfusion initiated) status: Narrative: The patient is a 26-year-old 2 para 1011 who is day #1 following a vaginal delivery at 37 4/7 weeks gestation. Her delivery was complicated by retained placenta. The on-call cleaning machine operator was consulted and performed manual the placenta. Total documented blood loss was 1100 mL. There were concerns about possible retained placenta, and the patient was taken to the operating room for uterine curettage. Clots were removed, but there was no appreciable placental fragments per the operative report. This morning, the patient complained only of some lightheadedness overnight. Her hemoglobin this morning was 7.0. 2 units of packed red blood cells were ordered, and the 1st unit is infusing at this time. OB - PN: Obj Exam Physical Exam: Vital signs: Temp Pulse Resp BP Pulse Ox O2 Del Method 98.3 F 92 16 122/77 96 04/06/22 08:28 04/06/22 08:28 04/06/22 08:28 04/06/22 08:28 04/06/22 08:28 04/06/22 08:17 Constitutional: Constitutional: no acute distress Routine Respiratory Exam: Comments: Normal respiratory effort. Routine Abdominal Exam: Abdominal: Present soft Fundus: Present firm Detailed Lower Extremity Exam: Hip: bilateral: normal inspection OB - PN: Obj Data Labs Labs: Laboratory Results - last 24 hr 04/05/22 04/06/22 04/06/22 22:47 03:57 04:57 WBC 24.47 H RBC 2.83 L Hgb 8.1 L 7.0 L* Hct 24.5 L MCV 87 MCH 29 MCHC 33 RDW Coeff of Maureen 13.7 Plt Count 207 Neut % (Auto) 87.9 H Lymph % (Auto) 6.1 L Cavalier % (Auto) 5.0 Eos % (Auto) 0.4 Baso % (Auto) 0.4 Neut # (Auto) 21.50 H Lymph # (Auto) 1.50 Cavalier # (Auto) 1.20 H Eos # (Auto) 0.10 Baso # (Auto) 0.10 Diff Slide Review Acceptable Review Blood Type O Positive Antibody Screen NEGATIVE Crossmatch (AHG) See Detail OB - PN: A/P Vaginal Delivery Assessment and Plan (1) Preeclampsia: Problem details: Elevated blood pressure in clinic 04/01 and 04/02, PC ratio 4.3 Status: Acute Assessment and Plan: BP stable . (2) Status post normal vaginal delivery: Status: Acute (3) Retained placenta with hemorrhage, condition: Status: Acute (4) Acute blood loss anemia: Status: Acute Assessment and Plan: Blood transfusion in progress. Plan day: 1 Plan: routine care
[2022-04-06] MEDS: CALCIUM CARBONATE 500 MG CHEW PO (16:42)
[2022-04-06 20:08] LABS: Hemoglobin* 8.8 gm/dL (12.0-16.0)
[2022-04-07 01:08] VITALS: BP 129/85; PULSE 90; RESP 18; O2SAT 99
[2022-04-07] MEDS: ACETAMINOPHEN 500 MG TABLET 1000 MG PO ×2 (04:17→10:58)
[2022-04-07 04:20] VITALS: BP 131/85; PULSE 92; RESP 18; TEMP 36.4; O2SAT 98
[2022-04-07 06:24] LABS: Basophils Percent Auto 0.5 % (0.0-3.0); Eosinophils Percent Auto 6.3 % (0.0-7.0); Hematocrit 26.2 % (33.0-51.0); Hemoglobin* 8.9 gm/dL (12.0-16.0); Immature Granulocytes Pct Auto 0.3 %; Lymphocytes Percent Auto 20.2 % (20-44); Mean Corpuscular HGB Conc 34 gm/dL (32-36); Mean Corpuscular Hemoglobin 29 pg (26-34); Mean Corpuscular Volume 86 fL (80-100); Monocytes Percent Auto 6.4 % (0.0-11.0); Neutrophils Percent Auto 66.3 % (42.0-72.0); Platelet Count* 206 K/uL (140-440); RDW Coefficient of Variation % 13.7 % (11.5-15.5); Red Blood Count 3.06 m/uL (4.00-5.20); White Blood Count* 16.95 K/uL (4.50-11.00)
[2022-04-07 06:26] LABS: Slide Review Reflex No
[2022-04-07] MEDS: DOCUSATE SODIUM 100 MG CAPSULE PO (07:50)
[2022-04-07 07:52] VITALS: BP 144/91; PULSE 90; RESP 20; TEMP 36.5; O2SAT 95
--- NOTE | 2022-04-07 08:35 | P.DS_ITS ---
Documented by User: Krys Dave CNM 04/07/22 09:02 DS: Providers Provider Time Seen by Provider: 08:35 Date Seen: 04/07/22 Date of admission: 04/02/22 15:37 Primary care physician: Cleo Raymond CNM Admitting Clinician: Cleo Raymond CNM Attending Physician on discharge: Krys Dave CNM Date of Discharge: 04/07/22 DS: Diagnosis Discharge Diagnosis (1) state: Status: Acute (2) Lactating mother: Status: Acute (3) Acute blood loss anemia: Status: Acute (4) Preeclampsia: Status: Acute Problem details: Elevated blood pressure in clinic 04/01 and 04/02, PC ratio 4.3 Exam Narrative: Exam Narrative: Objective: VSS, afebrile GENERAL APPEARANCE: ?normal affect, alert, no distress MOOD: ?appropriate HEENT: normocephalic, neck supple, full ROM CHEST: ?Symmetrical chest wall movement. ?Normal respiratory effort. ?Clear to auscultation HEART: ?regular rate and rhythm ABDOMEN: ?soft, non-tender. Uterine fundus is firm, 2 below Umbilicus, Midline and is appropriate for the stage of recovery. ?Bowel sounds present. PERINEUM:?mild edema of the perineum, there are bilateral 1st degree periurethral lacerations that are healing well. EXTREMITIES: ?normal and +1 edema Const: Vital Signs, click to edit/add: Vital Signs - 24 hr 04/06/22 09:13 04/06/22 11:40 04/06/22 11:44 Temperature 98.1 F 98.5 F Pulse Rate 95 90 Pulse Rate [Pulse Oximeter] 85 Respiratory Rate 16 16 16 Blood Pressure 119/73 120/80 Blood Pressure [Le ft Arm] 120/80 Pulse Oximetry 96 98 96 Oxygen Delivery Me thod Room Air 04/06/22 12:25 04/06/22 12:28 04/06/22 12:40 Temperature 97.9 F 97.6 F Pulse Rate 93 93 89 Pulse Rate [Pulse Oximeter] Respiratory Rate 16 16 16 Blood Pressure 126/84 126/84 129/83 Blood Pressure [Le ft Arm] Pulse Oximetry 96 97 97 Oxygen Delivery Me thod 04/06/22 13:48 04/06/22 15:34 04/06/22 15:37 Temperature 97.8 F Pulse Rate 91 101 H Pulse Rate [Pulse Oximeter] 101 H Respiratory Rate 16 16 16 Blood Pressure 124/83 133/85 Blood Pressure [Le ft Arm] 133/85 Pulse Oximetry 95 98 98 Oxygen Delivery Me thod Room Air 04/06/22 16:32 04/06/22 21:02 04/07/22 01:08 Temperature 98.1 F Pulse Rate 104 H Pulse Rate [Pulse Oximeter] 102 H 90 Respiratory Rate 16 18 18 Blood Pressure 138/91 H Blood Pressure [Le ft Arm] 144/98 H 129/85 Pulse Oximetry 100 98 99 Oxygen Delivery Me thod Room Air Room Air 04/07/22 04:20 04/07/22 07:52 Temperature 97.5 F L 97.7 F Pulse Rate Pulse Rate [Pulse Oximeter] 92 90 Respiratory Rate 18 20 Blood Pressure Blood Pressure [Le ft Arm] 131/85 144/91 H Pulse Oximetry 98 95 Oxygen Delivery Me thod Room Air Documenting provider has reviewed patient's vital signs: yes OB - DS: Summary Hospital Course Hospital Course: Subjective: Flora is a 26 y.o. G2 now P1 who was admitted to L & D for IOL r/t pre-eclampsia. ?She had an uncomplicated spontaneous vaginal waterbirth, complicated by a retained placenta. Placenta was manually removed and a D & C was performed for possible retained placental tissue. Blood loss was 1100. Flora was symptomatic for acute anemia and received 2 units of packed red blood cells. The patient feels well. ?The pain is well controlled with current medications. ?She has no new complaints. ?She is breast feeding and reports things are not going well with baby's latch, planning to be seen by today.? the patient has done well.? Vitals have been stable, except for some elevated blood pressures. Pt denies any pre-eclampsia symptoms including headaches, vision changes and URQ pain.? She has remained afebrile.? Has a good appetite, is tolerating a general diet. ?She is voiding without difficulty.? She is passing gas and has had a bowel movement.? She is ambulating and denies any dizziness, headaches, shortness of breath, nausea or light headedness. Flora stated that after she received blood products she felt immediately better, and continues to feel well. Would like a prescription for iron and colace.? Has a small amount of rubra lochia. ?She is undecided on method for prevention, will discuss at 2 week visit. Blood pressures have been elevated occasionally. Flora stated that she does have a blood pressure cuff at home and will be able to take her blood pressures twice a day, and return to office this week for blood pressure check, or call sooner if pressures are above 140/90. Reviewed when to call with signs and symptoms of uterine infection including increased bleeding, fever, pain, odor or discharge. Assessment: G2 now P1 Lactating Mother Pre-eclampsia Acute anemia d/t blood loss plan: Discharge home with baby. Return to clinic this week for blood pressure check, can be RN visit Follow up in 2 weeks and 6 weeks in clinic. , may follow up with if needed Acute anemia, continue iron supplementation for 6 week. Peripartum Data delivery method: Vaginal Laceration description: Periurethral - 1st Degree (unrepaired) Procedures: Procedures Operation Date: 04/06/22 01:10 <No data on this case meets the specified criteria> complications: retained placenta (Manual removal and D&C for possible retained placental fragments) [place] Gender: Female (Ivan Montero) Discharge Plan: Home Status at Discharge Functional status at discharge: independent ambulation Overall status at discharge: patient is progressing back to baseline Time Spent with Patient Time attestation: Total time spent providing and/or coordinating discharge services: Time spent: Less than 30 minutes Discharge Plan Discharge Disposition: Home, Self-Care Date of Admission: 04/02/22 15:37 Attending Provider on Discharge: Krys Dave Primary Care Provider: Cleo Raymond Condition: Stable Anticipated Discharge Date/Time: 04/07/22 08:52 Discharge Medications: New docusate sodium 100 mg Capsule 100 mg PO BID Qty: 100 0RF Slow Release Iron 140 mg (45 mg iron) tablet extended release 140 mg PO DAILY Qty: 45 0RF acetaminophen 500 mg Tablet 1,000 mg PO Q6H PRNQty: 0 0RF ibuprofen 600 mg Tablet 600 mg PO Q6H PRNQty: 0 0RF Continued prenat.vits,genaro,[id number] Tablet 1 tab PO QDAY albuterol sulfate 90 mcg/actuation HFA aerosol inhaler 1 inh inhalation Q6H PRN (Reason: shortness of breath or wheezing) Qty: 6.7 1RF duloxetine [Cymbalta] 60 mg capsule,delayed release(DR/EC) 60 mg PO QDAY Qty: 90 1RF Discharge Orders: Discharge Order (Routine); Ordered 04/07/22 Ordered By: Krys Dave Additional Instructions: Blood Pressure check in 3-4 days in clinic 2 & 6 week visits Activity Level: Activity as Tolerated Discharge Diet: Regular Follow Up Appointments: [facility] [Provider Group] Cleo Raymond CNM [Primary Care Provider] - Forms: [facility] Info Instructions Documented by User: Kinjal Gallagher CNM 04/07/22 09:13 DS: Diagnosis Discharge Diagnosis (1) state: Status: Acute (2) Lactating mother: Status: Acute (3) Acute blood loss anemia: Status: Acute (4) Preeclampsia: Status: Acute Problem details: Elevated blood pressure in clinic 04/01 and 04/02, PC ratio 4.3 OB - DS: Summary Hospital Course Hospital Course: Subjective: Flora is a 26 y.o. G2 now P1 who was admitted to L & D for IOL r/t pre-eclampsia. ?She had an uncomplicated spontaneous vaginal waterbirth, complicated by a retai paz placenta. Placenta was manually removed and a D & C was performed for possible retained placental tissue. Blood loss was 1100 in L & D and possibly another 1000 in the OR. Flora was symptomatic for acute anemia and received 2 units of packed red blood cells. The patient feels well. ?The pain is well controlled with current medications. ?She has no new complaints. ?She is breast feeding and reports things are not going well with baby's latch, planning to be seen by today.? the patient has done well.? Vitals have been stable, except for some mildly elevated blood pressures. Pt denies any pre-eclampsia symptoms including headaches, vision changes and URQ pain.? She has remained afebrile.? Has a good appetite, is tolerating a general diet. ?She is voiding without difficulty.? She is passing gas and has had a bowel movement.? She is ambulating and denies any dizziness, headaches, shortness of breath, nausea or light headedness. Flora stated that after she received blood products she felt immediately better, and continues to feel well. Would like a prescription for iron and colace.? Has a small amount of rubra lochia. ?She is undecided on method for prevention, will discuss at 2 week visit. Blood pressures have been elevated occasionally. Flora stated that she does have a blood pressure cuff at home and will be able to take her blood pressures twice a day, and return to office this week for blood pressure check, or call sooner if pressures are above 140/90. Reviewed when to call with signs and symptoms of uterine infection including increased bleeding, fever, pain, odor or discharge. Assessment: G2 now P1 Lactating Mother Pre-eclampsia Acute anemia d/t blood loss plan: Discharge home with baby. Return to clinic this week for blood pressure check, can be RN visit Follow up in 2 weeks and 6 weeks in clinic. , may follow up with if needed Acute anemia, continue iron supplementation for 6 week. Discharge Plan Discharge Disposition: Home, Self-Care Date of Admission: 04/02/22 15:37 Attending Provider on Discharge: Krys Dave Primary Care Provider: Cleo Raymond Condition: Stable Anticipated Discharge Date/Time: 04/07/22 08:52 Discharge Medications: New docusate sodium 100 mg Capsule 100 mg PO BID Qty: 100 0RF Slow Release Iron 140 mg (45 mg iron) tablet extended release 140 mg PO DAILY Qty: 45 0RF acetaminophen 500 mg Tablet 1,000 mg PO Q6H PRNQty: 0 0RF ibuprofen 600 mg Tablet 600 mg PO Q6H PRNQty: 0 0RF Continued prenat.vits,genaro,[id number]-sbrr-mvbqg Tablet 1 tab PO QDAY albuterol sulfate 90 mcg/actuation HFA aerosol inhaler 1 inh inhalation Q6H PRN (Reason: shortness of breath or wheezing) Qty: 6.7 1RF duloxetine [Cymbalta] 60 mg capsule,delayed release(DR/EC) 60 mg PO QDAY Qty: 90 1RF Discharge Orders: Discharge Order (Routine); Ordered 04/07/22 Ordered By: Krys Dave Additional Instructions: Blood Pressure check in 3-4 days in clinic 2 & 6 week visits Activity Level: Activity as Tolerated Discharge Diet: Regular Follow Up Appointments: [facility] [Provider Group] Cleo Ramyond CNM [Primary Care Provider] - Forms: [email or web address] Info Instructions
[2022-04-07] MEDS: AMPICILLIN 2 GM in 0.9 % SODIUM CHLORIDE Mini-bag 100 ML IVPB ×2 (08:43)
--- NOTE | 2022-04-08 11:45 | SUR.PHASEI ---
PATIENT MEETS PACU DISCHARGE CRITERIA; OK TO TRANSFER PER ANESTHESIA D/T BP STABILIZATION AND MAINTENANCE
== END 2022-04-07 14:24 | disposition home or self-care (01) | DRG 541 ==
LOC: OB OUT 15:38 → OB 15:38
PROVIDERS: Advanced Practice Midwife; Obstetrics & Gynecology; Admitting Provider Advanced Practice Midwife; PCP Advanced Practice Midwife; Visit Provider Advanced Practice Midwife
PROC: 10D17ZZ Extraction of Products of Conception, Retained, Via Natural or Artificial Opening (ICD-10-PCS; principal; 2022-04-06 01:00)
DX: O14.04 Mild to moderate pre-eclampsia, complicating childbirth (principal); O72.0 Third-stage hemorrhage; O90.81 Anemia of the puerperium; D62 Acute posthemorrhagic anemia; R42 Dizziness and giddiness; O70.0 First degree perineal laceration during delivery; O99.344 Other mental disorders complicating childbirth; F32.A Depression, unspecified; F41.9 Anxiety disorder, unspecified; F98.8 Other specified behavioral and emotional disorders with onset usually occurring in childhood and adolescence; Z3A.37 37 weeks gestation of pregnancy; Z37.0 Single live birth
CPT/HCPCS: 00940; 36415; 36430; 59200; 76857; 81003; 81015; 82565; 82570; 84156; 84450; 84460; 84520; 85018; 85025; 85027; 86592; 86850; 86900; 86901; 86922; 87086; 87635; 88305; 88307; 99140; A9270; J0290; J1200; J1580; J2270; J2370; J2400; J3010; J7120; P9016

== ENCOUNTER 2022-04-18 12:57 | Outpatient (CLI) | payer BC, SELFPAY ==
--- NOTE | 2022-04-18 17:00 | W.PM.LAC.MC ---
Consult Note - Mom Date of Visit Date of visit: 04/18/22 senior consumer insights consultant: Dixie Johnson Visit Code: Visit Patient's Information Phone number: [phone] : 2 Para: 1 Allergies SEASONAL Allergy (Intermediate, Uncoded 04/25/22 13:33) runny nose, sneezing Fruit extracts / lutein / lycopene Adverse Reaction (Intermediate, Uncoded 04/25/22 13:33) irritation Vegetable Enzyme Adverse Reaction (Intermediate, Uncoded 04/25/22 13:33) allergy to all raw fruit and vegetables Mother's Medical History: Medical History (Updated 04/25/22 @ 14:50 by Carlos Mcduffie) Bilateral hand pain COVID-19 affecting , antepartum Forearm pain Retained placenta with hemorrhage, condition anxiety/depression Delivery Information Delivery type: Vaginal Weeks Gestation: 37.4 Gestational Age: AGA Weight: 3.135 kg Discharge Weight: 2.944 kg Baby's Information Baby's Age at Visit: 13 days Baby's Provider or Clinic: Dr. Brown Jaundice: No Reason for Consult Reason for Consult: concern for slow weight gain Past Experience Past Experience: No Current Frequency of Day Feedings: every 2 - 3 hours Frequency of Night Feedings: every 3 - 4 hours Both Breasts: No (mom is exclusively pumping and bottle feeding) Pumping Pumping: Yes (with every feeding) Quantity Pumped: about 6 oz total each time Supplementing EMB Supplement: Yes (baby is taking 2 oz every 2 - 4 hours) Formula Supplement: No Baby Elimination Number of Wet Diapers a Day: 7 - 8 Number of BM a Day: 2 - 3; yellow and seedy Breast/Nipple Condition Breast Information: WNL Engorgement: No Onsite Pre-Feed weight: 3.122 kg Assessments/Interventions Assessments/Interventions: Assessments/Interventions: Met with mom and this ex- 37 week AGA baby for consult.? Mom is worried about baby's weight gain and so that she can see how much baby is taking has decided to exclusively pump and offer EBM.? She has a Medela and uses a 20 mm flange on both sides.? She pumps whenever baby eats and gets about 6 oz total each time.? Breasts WNL- symmetrical with rounded lower quadrants, intramammary distance is < 1.5 inches.? Nipples are everted and no damage is noted. Mom had a D&C after delivery and rec'd one unit PRBC's. Baby has gained 21 grams/day since her last visit on 03/30 and is 13 grams below BW at 13 DOL.? Mom reports baby is now taking 2 oz every 2 - 3 hours and she's switched to a size 4 nipple.? Reports with a slow flow nipple it was taking up to 2 hours to feed her, with the size 4 it takes about 30 minutes.? Per POC she did not have a caput/cephalohematoma, does prefer turning her head to the left.? Her palate is WNL and her upper lip flanges easily with no blanching of the gums.? She doesn't have a very aggressive suck on a finger but the tongue does extend past the gum line and has good lateral movement.? When baby was bottle fed, there was a puckering of the cheeks.? Reviewed with mom that although her milk supply is really good, babies stimulate the breasts better than the pump and we can review signs of good weight gain if she'd like to try nursing baby. If she was interested in [facility] she would get a weekly weight which would also provide some reassurance. Mom declined a latch assessment and preferred just to have a bottle feeding observed. Baby took 65 ml but it took about 45 minutes; baby was sleepy.? Mom reports this is typical with overnight feeds and sometimes during the day but she usually finishes a bottle in 30 minutes.? Mom pumped and after 15 minutes got about 6 oz total.? Her nipples measured 16 mm. Plan: 1. Continue to offer the bottle every 2 - 4 hours, a feeding should take between 20 - 30 minutes.? For now, use the size 4 nipple. 2. Continue pumping with every feeding.? Reviewed the recommendation for a flange is 0 - 4 mm larger than the nipple measurement.? She could try a 16 or 18 mm flange, but if the 20 mm is comfortable and she continues to pump a good amount no need to switch.? Flange Fit guide given. 4. Will f/u with PCP for 2 week WCC. Will f/u by phone if she doesn't come to [facility]. 5. Suggested body work to help with ROM; handout given on local therapists. 6. Reviewed four exercises POC could try to help increase strength of baby's suck (cheek rubs, squishy face, tug of war, cheek pulses).? If these help mom may be able to go down on the nipple size. Meds Home Medications and Allergies Home Medications Medication Instructions Recorded Confirmed Type prenat.vits,genaro,[id number] 1 tab PO QDAY 10/03/21 04/25/22 History Allergies Allergy/AdvReac Type Severity Reaction Status Date / Time SEASONAL Allergy Intermediate runny Uncoded 04/25/22 13:33 nose, sneezing Fruit extracts / lutein / AdvReac Intermediate irritation Uncoded 04/25/22 13:33 lycopene Vegetable Enzyme AdvReac Intermediate allergy to Uncoded 04/25/22 13:33 all raw fruit and vegetables
== END 2022-04-18 12:58 | disposition home or self-care (01) ==
LOC: OB LAC 12:58
PROVIDERS: PCP Advanced Practice Midwife; Visit Provider Advanced Practice Midwife
DX: Z39.1 Encounter for care and examination of lactating mother (principal)
CPT/HCPCS: 99211

== ENCOUNTER 2022-04-25 14:45 | Outpatient (CLI) | payer BC, OTHER, SELFPAY | END 2022-04-25 14:46 | disposition home or self-care (01) | PROVIDERS: PCP Advanced Practice Midwife; Visit Provider Advanced Practice Midwife | DX: Z39.2 Encounter for routine postpartum follow-up (principal) | CPT/HCPCS: 82728; 83540; 83550 ==

== ENCOUNTER 2022-05-07 08:10 | Outpatient (CLI) | payer BC, OTHER, SELFPAY | END 2022-05-07 08:11 | disposition home or self-care (01) | LOC: NFLDREF 05-09 01:42 | PROVIDERS: PCP Advanced Practice Midwife; Referring Provider Advanced Practice Midwife; Visit Provider Nurse Practitioner Family | DX: Z79.899 Other long term (current) drug therapy (principal) | CPT/HCPCS: 82306; 84443 ==

== ENCOUNTER 2023-05-25 14:06 | Outpatient (CLI) | payer OTHER, SELFPAY | END 2023-05-25 14:07 | disposition home or self-care (01) | PROVIDERS: PCP Nurse Practitioner Family; Visit Provider Nurse Practitioner Family | DX: N93.8 Other specified abnormal uterine and vaginal bleeding (principal); Z83.79 Family history of other diseases of the digestive system | CPT/HCPCS: 83516; 84443; 85025; 86364 ==

== ENCOUNTER 2024-03-18 07:54 | Outpatient (CLI) | payer OTHER, SELFPAY ==
--- NOTE | 2024-03-18 08:15 | CRLHL7_ITS ---
For Patients: As a result of the Century Cures Act, medical imaging exams and procedure reports are released immediately into your electronic medical record. You may view this report before your referring provider. If you have questions, please contact your health care provider. INDICATION: First trimester scan, establish dates. TECHNIQUE: Real-time prather-scale imaging of the pelvis was performed. FINDINGS: Sonographic imaging demonstrates a single living intrauterine gestation. The embryo demonstrates a regular cardiac rate measuring 178 beats per minute. The embryo`s crown-rump length measurement of 2.1 cm corresponds to a gestational age of 8 weeks 6 days with a sonographic due date of 10/23/2024. There is a normal-appearing yolk sac. Anechoic small cystic structure measuring 0.6 centimeters along the inferior left gestational sac of unclear clinical significance. IMPRESSION: 1. Early intrauterine gestation. Gestational age calculated at 8 weeks 6 days with a sonographic due date of 10/23/2024 . 2. Small 6 millimeter anechoic cystic structure within the uterus of unclear clinical significance.Recommend follow-up. Dictated by Katherine Matthews MD @ 03/18/2024 1:11:27 PM (Electronically Signed)
== END 2024-03-18 07:55 | disposition home or self-care (01) ==
LOC: US 07:55
PROVIDERS: PCP Nurse Practitioner Family; Visit Provider Registered Nurse
DX: Z34.91 Encounter for supervision of normal pregnancy, unspecified, first trimester (principal); Z3A.08 8 weeks gestation of pregnancy
CPT/HCPCS: 76817; 82565; 82570; 82728; 83021; 84156; 84443; 84450; 84460; 84520; 86592; 86703; 86704; 86706; 86762; 86787; 86803; 86850; 86900; 86901; 87086; 87340; 87491; 87591

== ENCOUNTER 2024-03-22 11:30 | Outpatient (CLI) | payer OTHER, SELFPAY | END 2024-03-22 11:31 | disposition home or self-care (01) | LOC: NFLDREF 03-23 06:30 | PROVIDERS: PCP Nurse Practitioner Family; Referring Provider Nurse Practitioner Family; Visit Provider Registered Nurse | DX: O16.1 Unspecified maternal hypertension, first trimester (principal) | CPT/HCPCS: 82570; 84156 ==

== ENCOUNTER 2024-04-08 13:39 | Outpatient (CLI) | payer OTHER, SELFPAY | END 2024-04-08 13:40 | disposition home or self-care (01) | LOC: US 13:40 | PROVIDERS: PCP Nurse Practitioner Family; Visit Provider Registered Nurse | DX: O36.8390 Maternal care for abnormalities of the fetal heart rate or rhythm, unspecified trimester, not applicable or unspecified (principal) | CPT/HCPCS: 76817 ==

== ENCOUNTER 2024-04-12 09:11 | Day surgery (SDC) | payer OTHER, SELFPAY ==
[2024-04-12] VITALS (7 sets, daily range): BP systolic 100–133; BP diastolic 65–73; PULSE 64–84; RESP 16; TEMP 36.3–36.6; O2SAT 94–99; BMI 37.4
--- OUTSIDE RECORDS SUMMARY | 2024-04-12 09:14 | XMS_ITS | Clinical Summary ---
Author Organization [facility] Address [address] [place] [address] Care Team Providers Care Corporate Planner Name Role Phone Sim Trujillo Alacedrickruiz MBBS Unavailable Gilma Carlson BOILER INSTALLER Primary Care Provider [phone] Melyssa Pagan BOILER INSTALLER Unavailable [phone] Allergies Active Allergy Reactions Criticality Noted Date Comments Banana Anaphylaxis High 04/01/2024 House Dust Itching 04/01/2024 SOB, sneezing Mold Shortness Of Breath 04/01/2024 Ragweed Pollen Hives 04/01/2024 Raw Vegetable Tongue Swelling High 04/01/2024 Tree And Shrub Pollen Shortness Of Breath 04/01 Medications NebulizersIndic ations:Unspecif ied asthma(493.90) As directed. For home use. Length of need: lifetime Portable nebulizer with battery option for travel/events like dance 1 Kit 0 1 Active methylphenidate (CONCERTA) 54 mg ER tablet Take 1 tablet by mouth once daily. 0 3 Active etonogestrel subdermal implant (NEXPLANON) 68 mg implantIndicati ons:Nexplanon insertion Inject 1 Device subdermal one time. 1 Device 0 3 Active montelukast (SINGULAIR) 10 mg tablet Take 1 tablet by mouth at bedtime. 90 tablet 3 3 Active fluticasone-keli meterol (ADVAIR DISKUS) 250-50 mcg/Dose diskus inhaler Inhale 1 Puff by mouth every 12 hours. 1 Inhaler 5 3 Active albuterol (PROVENTIL) 0.083 % neb solutionIndicat ions:Unspecifie d asthma(493.90) Inhale 3 mL via a nebulizer every 4 hours if needed for Shortness Of Breath. 1 box 0 4 Active albuterol HFA (PRO-AIR,VENTOL IN,PROVENTIL) 90 mcg/actuation inhaler Inhale 2 Puffs by mouth 4 times daily if needed. 2 Inhaler 0 4 Active predniSONE (DELTASONE) 20 mg tablet Take 1 tablet by mouth 2 times daily with meals. 0 4 Active DULoxetine (CYMBALTA) 60 mg Delayed-release capsule Take 60 mg by mouth once daily. 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 11/03/2012 Adjustment disorder with mixed anxiety and depre ssed mood 11/03/2012 Unspecified constipation 08/02/2007 Unspecified asthma(493.90) 06/18/2006 Estimated Date of Delivery Comme nts Yes 10/20/2024 Encounters Date Type Department Care Team Description 04/08/2024 Telephone [facility] [address] [place] [address] Gilma Carlson BOILER INSTALLER Appointment (Reschedule) 04/07/2024 4:00 PM EXHIBIT SPECIALIST Ancillary Procedure [facility] [address] [facility] [address] [place] [address] 04/07/2024 Travel 04/04/2024 9:20 AM EXHIBIT SPECIALIST Orders Only [facility] [address] [place] [address] Lab 04/04/2024 Travel 04/04/2024 Telephone [facility] [address] [place] [address] Agapito Frazier MD Provider to Provider Progess Notes (Provider in outside location, [facility] ) 04/01/2024 3:00 PM EXHIBIT SPECIALIST Office Visit [facility] [address] [place] [address] Sim Trujillo MBBS Consult (Referred by: Pete Pagan, [facility]/Dx: Proteinuria affecting , History of pre-eclampsia/) 04/01/2024 Travel 03/30/2024 Telephone [facility] [address] [place] [address] Sim Trujillo MBBS Appointment from Last 3 Months Immunizations Name Administration Dates Next Due DTaP 10/11/2001, 9,03/27/1997,02/10/1997 ,01/06/1997 HIB-HepB (Comvax) 10/23/1997,02/10/1997,01/06/19 97 Hepatitis A (Peds) 12/07/2008,10/11/2007 Human Papilloma Virus Vaccine 10/11/2009, 009,10/11/2007 Inactivated Polio Vaccine 10/11/2001 Influenza A (H1N1), Inactivated 01/05/2009 Influenza, RIV3 (Age =>18 Years) 12/11/2015 MMR 10/04/2001,10/23/1997 Meningococcal Vaccine (Menactra) 10/11/2007 Oral Polio Vaccine 04/24/1997,02/10/1997, 997 Tdap 10/11/2007 Family History Medical History Relation Name Comments Good Health Father Good Health Mother Relation Name Status Comments Father Mother Social History Tobacco Use Types Packs/Day Years Used Date Smoking Tobacco: Some Days Cigarettes Passive Smoke Exposure: Yes Smokeless Tobacco: Never Tobacco Cessation:Ready to Q uit: Not Asked; Counseling Given: Not Answered Comments:unclear when she started smoking, has not fully quit yet, 3 cigarettes a day currently as of 04/01/24 Alcohol Use Standard Drinks/Week Comments No 0 (1 standard drink = 0.6 oz pur e alcohol) Estimated Date of Delivery Comme nts Yes 10/20/2024 Sex and Gender Information Value Date Recorded Sex Assigned at Not on file Legal Sex Female 5:18 AM EXHIBIT SPECIALIST Gender Identity Not on file Sexual Orientation Not on file Obstetrics History Para Term AB IAB SAB Ectopic Multiple Livin g Live Births 1 Date Outcome GA Total Labor Labor/2nd/3rd Weight Sex Type Anes PTL Joselyn A1 A5 Name Clin Current Last Filed Vital Signs Vital Sign Reading Time Taken Comments Blood Pressure 130/82 04/01/2024 3:02 PM EXHIBIT SPECIALIST WelchAllyn Pulse 83 04/01/2024 3:02 PM EXHIBIT SPECIALIST Temperature 36.8 C (98.2 F) 03/16/2013 6:30 PM EXHIBIT SPECIALIST Respiratory Rate - - Oxygen Saturation 100% 12/11/2015 1:2 6 PM CDT Inhaled Oxygen Concentration - - Weight 97.6 kg (215 lb 1.6 oz) 04/01/19 3:02 PM EXHIBIT SPECIALIST Height 161 cm (5' 3.39) 12/11/2015 1:2 6 PM CDT Body Mass Index - - Plan of Treatment Upcoming Encounters Date Type Department Care Team (Late st Contact Info) Description 06/28/2024 12:20 PM CDT Orders Only [facility] [address] [place] [address] 07/01/2024 3:30 PM CDT Office Visit [facility] [address] [place] [address] Sim Trujillo MBBS [address] [place] [address] Health Maintenance Due Date Last Done Comments HIV for age 15-65 10/08/2011 Hepatitis C screening for ag e 18-79 2014 Pneumococcal series for age 6-49 (1 of 2 - PCV) 10/08/2015 BMI (ht and wt on same day) for age 18+ 12/10/2016 12/11/2015 Depression screening for age 12+ 12/10/2016 12/11/19 16 Tetanus booster 10/10/2017 10/11/2007 Influenza for age 9-49 10/25/2023 12/11/2015, 2008 Pap test for age 21-65 05/28/2025 05/28/2022, 2022 Tdap Completed 10/11/2007 COVID-19 vaccine series Completed 03/18/19 25, 02/13/2021, 06/06/2020, Additional history exists RSV vaccine for adults or (No Doses Required) Completed Procedures Procedure Name Priority Date/Time Associated Diagnosis Comments US RENAL AND BLADDER COMPLETE LINDSAY 04/07/2024 4:35 PM EXHIBIT SPECIALIST Gestational proteinuria in first trimester CREATININE CLEARANCE SERUM Routine 04/04/2024 4:50 PM EXHIBIT SPECIALIST Gestational proteinuria in first trimester CREATININE CLEARANCE URINE Routine 04/04/2024 7:00 AM EXHIBIT SPECIALIST Gestational proteinuria in first trimester CREATININE CLEARANCE URINE Routine 04/04/2024 7:00 AM EXHIBIT SPECIALIST Gestational proteinuria in first trimester PROTEIN,TIMED URINE Routine 04/04/2024 7 :00 AM EXHIBIT SPECIALIST Gestational proteinuria in first trimester URINALYSIS MICROSCOPIC Routine 4:59 PM EXHIBIT SPECIALIST Gestational proteinuria in first trimester URINALYSIS MACROSCOPIC - [facility] ONLY POC DIP (QUEST) Routine 04/01/2024 4:59 PM EXHIBIT SPECIALIST Gestational proteinuria in first trimester URINE ALBUMIN TO CREATININE RATIO, RANDOM Routine 04/01/2024 4:59 PM EXHIBIT SPECIALIST Gestational proteinuria in first trimester PROTEIN/CREAT RATIO,URINE Routine 04/01/2024 4:59 PM EXHIBIT SPECIALIST Gestational proteinuria in first trimester IMMUNOFIXATION,SERUM Routine 04/01/2024 4:54 PM EXHIBIT SPECIALIST Gestational proteinuria in first trimester C4 COMPLEMENT Routine 04/01/2024 4:54 PM EXHIBIT SPECIALIST Gestational proteinuria in first trimester C3 COMPLEMENT Routine 04/01/2024 4:54 PM EXHIBIT SPECIALIST Gestational proteinuria in first trimester CBC WITH AUTO DIFFERENTIAL Routine 04/01/2024 4:54 PM EXHIBIT SPECIALIST Gestational proteinuria in first trimester LD,TOTAL Routine 04/01/2024 4:54 PM EXHIBIT SPECIALIST Gestational proteinuria in first trimester HAPTOGLOBIN Routine 04/01/2024 4:54 PM EXHIBIT SPECIALIST Gestational proteinuria in first trimester ANTIGLOMERULAR BASEMENT MEMBRANE ANTIBODIES Routine 04/01/2024 4:54 PM EXHIBIT SPECIALIST Gestational proteinuria in first trimester PHOSPHOLIPASE A2 RECEPTOR Routine 04/01/2024 4:54 PM EXHIBIT SPECIALIST Gestational proteinuria in first trimester SJOGRENS ANTIBODIES Routine 04/01/2024 4 :54 PM EXHIBIT SPECIALIST Gestational proteinuria in first trimester ELP AND FREE LIGHT CHAINS W REFLEX, BLOOD Routine 04/01/2024 4:54 PM EXHIBIT SPECIALIST Gestational proteinuria in first trimester DNA DOUBLE-STRANDED (DSDNA) ANTIBODIES BY JAMES RINCON IFA Routine 04/01/2024 4:54 PM EXHIBIT SPECIALIST Gestational proteinuria in first trimester PHOSPHORUS Routine 04/01/2024 4:54 PM EXHIBIT SPECIALIST Gestational proteinuria in first trimester ANTINUCLEAR ANTIBODY BY IFA Routine 04/01/2024 4:54 PM EXHIBIT SPECIALIST Gestational proteinuria in first trimester ANCA PANEL FOR VASCULITIS Routine 04/01/2024 4:54 PM EXHIBIT SPECIALIST Gestational proteinuria in first trimester CBC WITH AUTO DIFFERENTIAL Routine 04/01/2024 4:54 PM EXHIBIT SPECIALIST Gestational proteinuria in first trimester COMP METABOLIC PANEL Routine 04/01/2024 4:50 PM EXHIBIT SPECIALIST Gestational proteinuria in first trimester PROTIME-INR Routine 04/01/2024 4:50 PM EXHIBIT SPECIALIST Gestational proteinuria in first trimester APTT Routine 04/01/2024 4:48 PM EXHIBIT SPECIALIST Gestational proteinuria in first trimester HPV HIGH RISK Routine 05/28/2022 12:00 PM CDT from Last 3 Months or Most Recently Relevant to Health Maintenance Results * US RENAL AND BLADDER COMPLETE (04/07/2024 4:35 PM EXHIBIT SPECIALIST) Anatomical Region Laterality Modality Abdomen, AORTA, KIDNEYS Ultrasou nd 04/07/2024 8:47 PM EXHIBIT SPECIALIST Impressions 04/07/2024 8:47 PM EXHIBIT SPECIALIST 1. Normal sonographic appearance of the kidneys. No hydronephrosis. 2. No significant postvoid residual. Dictated by Tamiko Moy MD @ 04/07/2024 8:47:09 PM (Electronically Signed) Narrative 04/07/2024 8:47 PM EXHIBIT SPECIALIST For Patients: As a result of the Cures Act, medical imaging exams and procedure reports are released immediately into your electronic medical record. You may view this report before your referring provider. If you have questions, please contact your health care provider. INDICATION: Gestational proteinuria in first trimester. COMPARISON: None. TECHNIQUE: Grayscale and color Doppler images were acquired of the kidneys and urinary bladder. FINDINGS: Right kidney: Measures 11.1 cm in length. Normal cortical thickness and echogenicity. No hydronephrosis, calculus, or mass. Left kidney: Measures 11.3 cm in length. Normal cortical thickness and echogenicity. No hydronephrosis, calculus, or mass. Bladder: The urinary bladder appears normal. The prevoid bladder volume measures 144 cc. Postvoid residual measures 3 cc. Color Doppler images demonstrate presence of both ureteral jets. Procedure Note Tamiko Moy MD - 04/07/2024 For Patients: As a result of the Cures Act, medical imagingexams and procedure reports are released immediately into your electronicmedical record. You may view this report before your referring provider.If you have questions, please contact your health care provider. INDICATION: Gestational proteinuria in first trimester. COMPARISON: None. TECHNIQUE: Grayscale and color Doppler images were acquired of the kidneys andurinary bladder. FINDINGS: Right kidney: Measures 11.1 cm in length. Normal cortical thickness andechogenicity. No hydronephrosis, calculus, or mass. Left kidney: Measures 11.3 cm in length. Normal cortical thickness andechogenicity. No hydronephrosis, calculus, or mass. Bladder: The urinary bladder appears normal. The prevoid bladder volumemeasures 144 cc. Postvoid residual measures 3 cc. Color Doppler imagesdemonstrate presence of both ureteral jets. IMPRESSION: 1. Normal sonographic appearance of the kidneys. No hydronephrosis. 2. No significant postvoid residual. Dictated by Tamiko Moy MD @ 04/07/2024 8:47:09 PM (Electronically Signed) Sim ARCEO US Final Result * CREATININE CLEARANCE SERUM (04/04/2024 4:50 PM EXHIBIT SPECIALIST) eGFR >90 >90 mL/min/1.7 3m2 04/04/2024 10:57 PM EXHIBIT SPECIALIST [facility] Comment:As of 2021, eG FR is calculated by the CKD-EPI creatinine equation without race adjustment. eGFR can be influenced by muscle mass, exercise, and diet. The reported eGFR is an estimation only and is only applicable if the renal function is stable. CREATININE 0.68 0.50 - 0.90 mg/dL 04/04/2024 10:57 PM EXHIBIT SPECIALIST [facility] Blood BLOOD SPECIMEN / Unknown Non-Lab Venipuncture / Unknown 04/04/2024 4:50 PM EXHIBIT SPECIALIST 04/04/2024 4:51 PM EXHIBIT SPECIALIST Sim ARCEO CHEMISTRY Final Result [facility] [address] [place] [address], * CREATININE CLEARANCE URINE (04/04/2024 7:00 AM EXHIBIT SPECIALIST) TOTAL VOLUME 1,380 mL 04/04/2024 10:57 PM EXHIBIT SPECIALIST [facility]Camb[facility] TechnologiesBRE[facility] Comment:mL COLLECTION HRS 24 hr 04/04/2024 10:57 PM EXHIBIT SPECIALIST [facility] Comment:hours WEIGHT,POUNDS 215.0 lb 04/04/2024 10:57 PM EXHIBIT SPECIALIST [facility] Comment:lbs HEIGHT,INCHES 63.0 in 04/04/2024 10:57 PM EXHIBIT SPECIALIST [facility] Comment:in SURFACE AREA 2.00 04/04/2024 10:57 PM EXHIBIT SPECIALIST [facility] CREATININE RAW URINE 117 mg/dL 04/04/2024 10:57 PM EXHIBIT SPECIALIST [facility] UNCORRECTED CREAT CLR 165 mL/min 04/04/2024 10:57 PM EXHIBIT SPECIALIST [facility] CREATININE CLEARANCE 143 66 - 165 ml/min/1.7 3m2 04/04/2024 10:57 PM EXHIBIT SPECIALIST [facility] CREATININE 0.68 0.50 - 0.90 mg/dL 04/04/2024 10:57 PM EXHIBIT SPECIALIST [facility] Urine URINE SPECIMEN / Unknown Non-Blood / Unknown 04/04/2024 7:00 AM EXHIBIT SPECIALIST 04/04/2024 8:01 AM EXHIBIT SPECIALIST Sim ARCEO URINE Final Result [facility] [address] [place] [address], [place] * PROTEIN,TIMED URINE (04/04/2024 7:00 AM EXHIBIT SPECIALIST) PROTEIN,RAW URINE <6 mg/dL 04/04/2024 6:53 PM EXHIBIT SPECIALIST [facility] TOTAL VOLUME 1,380 mL 04/04/2024 6:53 PM EXHIBIT SPECIALIST [facility] COLLECTION HRS 24 hr 04/04/2024 6:53 PM EXHIBIT SPECIALIST [facility] PROTEIN,TIMED URINE 04/04/2024 6:53 PM EXHIBIT SPECIALIST [facility] Comment:Urine Protein below measurement range, unable to calculate. Urine URINE SPECIMEN / Unknown Non-Blood / Unknown 04/04/2024 7:00 AM EXHIBIT SPECIALIST 04/04/2024 8:01 AM EXHIBIT SPECIALIST Sim ARCEO URINE Final Result Performing Organization Address City/[facility]/ZIP Co de Phone Number [facility] [address] [place] [address], [place] * (ABNORMAL) POCT Urinalysis Dipstick Only (04/01/2024 4:59 PM EXHIBIT SPECIALIST) COLOR Yellow Yellow Color 04/01/2024 5:06 PM EXHIBIT SPECIALIST [facility] CLARITY Clear Clear Clarity 04/01/2024 5:06 PM EXHIBIT SPECIALIST [facility] SPECIFIC GRAVITY,URINE 1.025 1.010, 1.015, 1.020, 1.025 04/01/2024 5:06 PM EXHIBIT SPECIALIST [facility] PH,URINE 6.0 6.0, 7.0, 8.0, 5.5, 6.5, 7.5, 8.5 04/01/2024 5:06 PM EXHIBIT SPECIALIST [facility] UROBILINOGEN,Q UALITATIVE Normal Normal EU/dl 04/01/2024 5:06 PM EXHIBIT SPECIALIST [facility] PROTEIN, URINE 30(A) Negative mg/dL 04/01/2024 5:06 PM EXHIBIT SPECIALIST [facility] GLUCOSE, URINE Negative Negative mg/dL 04/01/2024 5:06 PM EXHIBIT SPECIALIST [facility] KETONES,URINE Trace(A) Negative mg/dL 04/01/2024 5:06 PM EXHIBIT SPECIALIST [facility] BILIRUBIN,URIN E Negative Negative 04/01/2024 5:06 PM EXHIBIT SPECIALIST [facility] OCCULT BLOOD,URINE Negative Negative 04/01/2024 5:06 PM EXHIBIT SPECIALIST [facility] NITRITE Negative Negative 04/01/2024 5:06 PM EXHIBIT SPECIALIST [facility] LEUKOCYTE ESTERASE Negative Negative 04/01/2024 5:06 PM EXHIBIT SPECIALIST [facility] Urine URINE SPECIMEN / Unknown Non-Blood / Unknown 04/01/2024 4:59 PM EXHIBIT SPECIALIST 04/01/2024 4:59 PM EXHIBIT SPECIALIST us Sim Trujillo [facility] URINE Final Result [facility] [address] [place] [address], [place] * (ABNORMAL) URINALYSIS MICROSCOPIC (04/01/2024 4:59 PM EXHIBIT SPECIALIST) RBC 3-5(A) 0-2, None Seen /HPF 04/02/2024 4:57 AM EXHIBIT SPECIALIST [facility] WBC 0-2 0-2, 3-5, None Seen /HPF 04/02/2024 4:57 AM EXHIBIT SPECIALIST [facility] BACTERIA Few None Seen, Rare, Few Bacteria/ HPF 04/02/2024 4:57 AM EXHIBIT SPECIALIST [facility] EPITHELIAL CELLS Few None Seen, Few Epi/HPF 04/02/2024 4:57 AM EXHIBIT SPECIALIST [facility] HYALINE CASTS 0-2 0-2, 3-5 /LPF 04/02/2024 4:57 AM EXHIBIT SPECIALIST [facility] CALCIUM OXALATE CRYSTALS Present(A) (none) 04/02/2024 4:57 AM EXHIBIT SPECIALIST [facility] Urine URINE SPECIMEN / Unknown Non-Blood / Unknown 04/01/2024 4:59 PM EXHIBIT SPECIALIST 04/01/2024 4:59 PM EXHIBIT SPECIALIST us Sim ARCEO URINE Final Result [facility] [address] [place] [address], [place] * (ABNORMAL) PROTEIN/CREAT RATIO,URINE (04/01/2024 4:59 PM EXHIBIT SPECIALIST) PROTEIN QUANT,RAND URINE 16(H) 1 - 14 mg/dL 04/02/2024 2:36 AM EXHIBIT SPECIALIST [facility] CREAT,RANDOM URINE 281.0(H) 28.0 - 217.0 mg/dL 04/02/2024 2:36 AM EXHIBIT SPECIALIST [facility] PROT/CREAT RATIO,UR 0.1 <0.2 04/02/2024 2:36 AM EXHIBIT SPECIALIST [facility] Urine URINE SPECIMEN / Unknown Non-Blood / Unknown 04/01/2024 4:59 PM EXHIBIT SPECIALIST 04/01/2024 4:59 PM EXHIBIT SPECIALIST Sim CARRERA URINE Final Result Performing Organization Address [facility]/ZIP Co de Phone Number [facility] [address] [place] [address], [place] * URINE ALBUMIN TO CREATININE RATIO, RANDOM (04/01/2024 4:59 PM EXHIBIT SPECIALIST) ALB RAND URINE 14.3 mg/L 04/02/2024 12:34 AM EXHIBIT SPECIALIST [facility] CREATININE,URIN E 2.81 g/L 04/02/2024 12:34 AM EXHIBIT SPECIALIST [facility] ALBUMIN TO CREATININE RATIO,RAND UR 5.1 <30.0 mg/g creat 04/02/2024 12:34 AM EXHIBIT SPECIALIST [facility] Urine URINE SPECIMEN / Unknown Non-Blood / Unknown 04/01/2024 4:59 PM EXHIBIT SPECIALIST 04/01/2024 4:59 PM EXHIBIT SPECIALIST Narrative [facility] - 04/02/2024 12:34 AM EXHIBIT SPECIALIST If Albumin to Creatinine Ratio is elevated, consider the following: Elevations seen with incipient nephropathy associated with diabetes mellitus or hypertension. Stress, exercise,hematuria, and urinary tract infection may also produce elevated results. If clinically indicated, confirm with 24 Hour Albumin to Creatinine Ratio. Sim CARRERA URINE Final Result Performing Organization Address City/[facility]/ZIP Co de Phone Number [facility] [address] [place] [address], [place] * PHOSPHOLIPASE A2 RECEPTOR (04/01/2024 4:54 PM EXHIBIT SPECIALIST) PHOSPHOLIPASE A2 RECEPTOR (PLA2R) AB, ZANDRA <4 RU/mL 04/05/2024 6:53 AM EXHIBIT SPECIALIST [facility] Comment: Reference Range: <14: NEGATIVE 14-19: BORDERLINE >19: POSITIVE Blood BLOOD SPECIMEN / Unknown Non-Lab Venipuncture / Unknown 04/01/2024 4:54 PM EXHIBIT SPECIALIST 04/01/2024 5:04 PM EXHIBIT SPECIALIST Terrancewaldo Sangeetha [facility] LABORATORY Final Result [employer] [address] [place] [address], * (ABNORMAL) ELP AND FREE LIGHT CHAINS W REFLEX, BLOOD (04/01/2024 4:54 PM EXHIBIT SPECIALIST) ELP,ALBUMIN 4.09 3.31 - 5.31 g/dL 04/05/2024 6:00 PM [facility] ELP,ALPHA 1 0.32 0.19 - 0.42 g/dL 04/05/2024 6:00 PM [facility] ELP,ALPHA 2 0.66 0.44 - 1.03 g/dL 04/05/2024 6:00 PM EXHIBIT SPECIALIST [facility] ELP,GAMMA 0.92 0.59 - 1.46 g/dL 04/05/2024 6:00 PM [facility] ELP,BETA 0.81 0.52 - 1.05 g/dL 04/05/2024 6:00 PM [facility] KAPPA FREE LIGHT CHAIN, S 1.40 0.33 - 1.94 mg/dL 04/05/2024 6:00 PM [facility] LAMBDA FREE LIGHT CHAIN, S 2.78(H) 0.57 - 2.63 mg/dL 04/05/2024 6:00 PM [facility] KAPPA/LAMBDA FLC RATIO 0.50 0.26 - 1.65 04/05/2024 6:00 PM [facility] ELP INTERP,SERUM Normal electrophoretic pattern. No monoclonal protein detected. Interpreted and electronically signed by: Tamiko Peace MD 04/05/2024 6:00 PM [facility] PROTEIN,TOTA L 6.8 6.0 - 8.0 g/dL 04/05/2024 6:00 PM EXHIBIT SPECIALIST [facility] Blood BLOOD SPECIMEN / Unknown Non-Lab Venipuncture / Unknown 04/01/2024 4:54 PM EXHIBIT SPECIALIST 04/01/2024 5:04 PM EXHIBIT SPECIALIST [facility] CHEMISTRY Final Result Performing Organization Address City/[facility]/ZIP Co de Phone Number [facility] [address] [place] [address], * ANTINUCLEAR ANTIBODY BY IFA (04/01/2024 4:54 PM EXHIBIT SPECIALIST) [facility] JAGDISH SCREEN, IFA NEGATIVE NEGATIVE 4:35 PM EXHIBIT SPECIALIST [employer] Comment: JAGDISH IFA is a first line screen for detecting the presence of up to approximately 150 autoantibodies in various autoimmune diseases. A negative JAGDISH IFA result suggests an JAGDISH-associated autoimmune disease is not present at this time, but is not definitive. If there is high clinical suspicion for Sjogren's syndrome, testing for anti-SS-A/Ro antibody should be considered. Anti-Sara-1 antibody should be considered for clinically suspected inflammatory myopathies. AC-0: Negative International Consensus on JAGDISH Patterns (https://doi.org/10.1515/cnht-0508-4022) For additional information, please refer to http://education.Villij.Fanitics/faq/NDW881 (This link is being provided for informational/ educational purposes only.) Blood BLOOD SPECIMEN / Unknown Non-Lab Venipuncture / Unknown 04/01/2024 4:54 PM EXHIBIT SPECIALIST 04/01/2024 5:04 PM EXHIBIT SPECIALIST Sim [facility] CHEMISTRY Final Result [employer] [address] [address], * ANTIGLOMERULAR BASEMENT MEMBRANE ANTIBODIES (04/01/2024 4:54 PM EXHIBIT SPECIALIST) Pathologist [facility] GLOMERULAR BASEMENT MEMBRANE ANTIBODY (IGG) <1.0 AI 04/02/2024 12:48 PM EXHIBIT SPECIALIST [facility] Comment: Value Interpretation ----- <1.0 No Antibody Detected > or = 1.0 Antibody Detected Blood BLOOD SPECIMEN / Unknown Non-Lab Venipuncture / Unknown 04/01/2024 4:54 PM EXHIBIT SPECIALIST 04/01/2024 5:04 PM EXHIBIT SPECIALIST Sim ARCEO SEND OUTS Final Result [facility] [address] [place] [address], [place] [phone] * (ABNORMAL) CBC WITH AUTO DIFFERENTIAL (04/01/2024 4:54 PM EXHIBIT SPECIALIST) Pathologist [facility] WHITE BLOOD CELL COUNT 12.8(H) 3.8 - 10.8 Thousand/ uL 04/02/2024 6:52 AM EXHIBIT SPECIALIST [facility] RED BLOOD CELL COUNT 4.80 3.80 - 5.10 Million/u L 04/02/2024 6:52 AM EXHIBIT SPECIALIST [facility] HEMOGLOBIN 13.8 11.7 - 15.5 g/dL 04/02/2024 6:52 AM EXHIBIT SPECIALIST [facility] HEMATOCRIT 42.1 35.0 - 45.0 % 04/02/2024 6:52 AM EXHIBIT SPECIALIST [facility] MCV 87.7 80.0 - 100.0 fL 04/02/2024 6:52 AM EXHIBIT SPECIALIST [facility] MCH 28.8 27.0 - 33.0 pg 04/02/2024 6:52 AM EXHIBIT SPECIALIST [facility] MCHC 32.8 32.0 - 36.0 g/dL 04/02/2024 6:52 AM EXHIBIT SPECIALIST [facility] Comment: For adults, a slight decrease in the calculated MCHC value (in the range of 30 to 32 g/dL) is most likely not clinically significant; however, it should be interpreted with caution in correlation with other red cell parameters and the patient's clinical condition. RDW 13.0 11.0 - 15.0 % 04/02/2024 6:52 AM EXHIBIT SPECIALIST [facility] PLATELET COUNT 336 140 - 400 Thousand/ uL 04/02/2024 6:52 AM EXHIBIT SPECIALIST [facility] MPV 12.0 7.5 - 12.5 fL 04/02/2024 6:52 AM EXHIBIT SPECIALIST [facility] NEUTROPHILS 64.8 % 04/02/2024 6:52 AM EXHIBIT SPECIALIST [facility] LYMPHOCYTES 24.8 % 04/02/2024 6:52 AM EXHIBIT SPECIALIST [facility] MONOCYTES 7.3 % 04/02/2024 6:52 AM EXHIBIT SPECIALIST [facility] EOSINOPHILS 2.3 % 04/02/2024 6:52 AM EXHIBIT SPECIALIST [facility] BASOPHILS 0.8 % 04/02/2024 6:52 AM EXHIBIT SPECIALIST [facility] ABSOLUTE NEUTROPHILS 8294(H) 1500 - 7800 cells/uL 04/02/2024 6:52 AM EXHIBIT SPECIALIST [facility] ABSOLUTE LYMPHOCYTES 3174 850 - 3900 cells/uL 04/02/2024 6:52 AM EXHIBIT SPECIALIST [facility] ABSOLUTE MONOCYTES 934 200 - 950 cells/uL 04/02/2024 6:52 AM EXHIBIT SPECIALIST [facility] ABSOLUTE EOSINOPHILS 294 15 - 500 cells/uL 04/02/2024 6:52 AM EXHIBIT SPECIALIST [facility] ABSOLUTE BASOPHILS 102 0 - 200 cells/uL 04/02/2024 6:52 AM EXHIBIT SPECIALIST [facility] Blood BLOOD SPECIMEN / Unknown Non-Lab Venipuncture / Unknown 04/01/2024 4:54 PM EXHIBIT SPECIALIST 04/01/2024 4:55 PM EXHIBIT SPECIALIST [facility] HEMATOLOGY Final Result [facility] [address] [place] [address], [place] [phone] * SJOGRENS ANTIBODIES (04/01/2024 4:54 PM EXHIBIT SPECIALIST) SJOGREN'S ANTIBODY (SS-B) <1.0 NEG <1.0 NEG AI 04/02/2024 12:48 PM EXHIBIT SPECIALIST [facility] SJOGREN'S ANTIBODY (SS-A) <1.0 NEG <1.0 NEG AI 04/02/2024 12:48 PM EXHIBIT SPECIALIST [facility] Blood BLOOD SPECIMEN / Unknown Non-Lab Venipuncture / Unknown 04/01/2024 4:54 PM EXHIBIT SPECIALIST 04/01/2024 5:04 PM EXHIBIT SPECIALIST Sim [facility] SEND OUTS Final Result [facility] [address] [address], * IMMUNOFIXATION,SERUM (04/01/2024 4:54 PM EXHIBIT SPECIALIST) Pathologist [facility] IGG 890.36 610.30 - 1,616.00 mg/dL 04/05/2024 6:00 PM EXHIBIT SPECIALIST [facility] IGA 254.51 84.50 - 499.00 mg/dL 04/05/2024 6:00 PM EXHIBIT SPECIALIST [facility] IGM 143.01 35.00 - 242.00 mg/dL 04/05/2024 6:00 PM EXHIBIT SPECIALIST [facility] IFIX INTERP,SERUM Immunofixation on serum shows no monoclonal protein detected and no free light chains detected. Interpreted and electronically signed by: Tamiko Peace MD 04/05/2024 6:00 PM EXHIBIT SPECIALIST [facility] Blood BLOOD SPECIMEN / Unknown Non-Lab Venipuncture / Unknown 04/01/2024 4:54 PM EXHIBIT SPECIALIST 04/01/2024 5:04 PM EXHIBIT SPECIALIST [employer] [facility] CHEMISTRY Final Result [facility] [address] [place] [address], * ANCA PANEL FOR VASCULITIS (04/01/2024 4:54 PM EXHIBIT SPECIALIST) ANCA SCREEN NEGATIVE NEGATIVE 04/02/2024 12:06 PM EXHIBIT SPECIALIST [employer] Comment: ANCA screen uses indirect immunofluorescence to detect antibodies to neutrophil cytoplasmic antigens. A positive screen reflexes to titer and pattern. Patterns include cytoplasmic (c-ANCA) and perinuclear (p-ANCA) both of which are associated with vasculitis, and atypical p-ANCA which is associated with inflammatory bowel disease and other disorders. Blood BLOOD SPECIMEN / Unknown Non-Lab Venipuncture / Unknown 04/01/2024 4:54 PM EXHIBIT SPECIALIST 04/01/2024 5:04 PM EXHIBIT SPECIALIST [employer] SEND OUTS Final Result Performing Organization Address [facility] de Phone Number [facility] [address] [address], [place] [phone] * C3 COMPLEMENT (04/01/2024 4:54 PM EXHIBIT SPECIALIST) COMPLEMENT COMPONENT C3C 140 83 - 193 mg/dL 04/02/2024 1:14 PM EXHIBIT SPECIALIST [facility] Blood BLOOD SPECIMEN / Unknown Non-Lab Venipuncture / Unknown 04/01/2024 4:54 PM EXHIBIT SPECIALIST 04/01/2024 5:04 PM EXHIBIT SPECIALIST Narrative [facility] - 04/02/2024 1:14 PM EXHIBIT SPECIALIST FASTING: UNKNOWN Sim [facility] CHEMISTRY Final Result Performing Organization Address [facility] de Phone Number [employer] [address] [address], * C4 COMPLEMENT (04/01/2024 4:54 PM EXHIBIT SPECIALIST) COMPLEMENT COMPONENT C4C 31 15 - 57 mg/dL 04/02/2024 1:14 PM EXHIBIT SPECIALIST [facility] Blood BLOOD SPECIMEN / Unknown Non-Lab Venipuncture / Unknown 04/01/2024 4:54 PM EXHIBIT SPECIALIST 04/01/2024 5:04 PM EXHIBIT SPECIALIST Narrative [facility] - 04/02/2024 1:14 PM EXHIBIT SPECIALIST FASTING: UNKNOWN [employer] [facility] CHEMISTRY Final Result Performing Organization Address [facility]/ZIP Co de Phone Number [facility] [address] [address], [place] [phone] * LD,TOTAL (04/01/2024 4:54 PM EXHIBIT SPECIALIST) [facility] LD 161 100 - 200 U/L 04/02/2024 11:52 AM EXHIBIT SPECIALIST [facility] Blood BLOOD SPECIMEN / Unknown Non-Lab Venipuncture / Unknown 04/01/2024 4:54 PM EXHIBIT SPECIALIST 04/01/2024 5:04 PM EXHIBIT SPECIALIST [employer] [facility] CHEMISTRY Final Result Performing Organization Address [facility]/ZIP Co de Phone Number [facility] [address] [address], [place] [phone] * DNA DOUBLE-STRANDED (DSDNA) ANTIBODIES BY CRITHIDIEmiliano LUCILIAJennifer IFA (04/01/2024 4:54 PM EXHIBIT SPECIALIST) [facility] DNA (DS) ANTIBODY 1 IU/mL 025 12:48 PM EXHIBIT SPECIALIST [facility] Comment: IU/mL Interpretation < or = 4 Negative 5-9 Indeterminate > or = 10 Positive Blood BLOOD SPECIMEN / Unknown Non-Lab Venipuncture / Unknown 04/01/2024 4:54 PM EXHIBIT SPECIALIST 04/01/2024 5:04 PM EXHIBIT SPECIALIST [employer] S[employer] OUTS Final Result Performing Organization Address City/[facility]/ZIP Co de Phone Number [employer] [address] [address], [place] [phone] * PHOSPHORUS (04/01/2024 4:54 PM EXHIBIT SPECIALIST) [facility] PHOSPHATE ( PHOSPHORUS) 3.6 2.5 - 4.5 mg/dL 04/02/2024 11:52 AM EXHIBIT SPECIALIST [facility] Blood BLOOD SPECIMEN / Unknown Non-Lab Venipuncture / Unknown 04/01/2024 4:54 PM EXHIBIT SPECIALIST 04/01/2024 5:04 PM EXHIBIT SPECIALIST Sim Vivas Arielle [facility]O CHEMISTRY Final Result Performing Organization Address [facility] de Phone Number [employer] [address] [address], [place] [phone] * HAPTOGLOBIN (04/01/2024 4:54 PM EXHIBIT SPECIALIST) HAPTOGLOBIN 96 43 - 212 mg/dL 04/04/2024 3:36 PM EXHIBIT SPECIALIST [facility] Blood BLOOD SPECIMEN / Unknown Non-Lab Venipuncture / Unknown 04/01/2024 4:54 PM EXHIBIT SPECIALIST 04/01/2024 5:04 PM EXHIBIT SPECIALIST Sim Sangeetha CARRERA CHEMISTRY Final Result Performing Organization Address [facility] de Phone Number [employer] [address] [address], [place] [phone] * PROTIME-INR (04/01/2024 4:50 PM EXHIBIT SPECIALIST) Pathologist [facility] INR 1.0 <1.3 04/01/2024 10:14 PM EXHIBIT SPECIALIST [facility] PROTIME 11.4 10.6 - 12.4 sec 04/01/2024 10:14 PM EXHIBIT SPECIALIST [facility] Blood BLOOD SPECIMEN / Unknown Non-Lab Venipuncture / Unknown 04/01/2024 4:50 PM EXHIBIT SPECIALIST 04/01/2024 4:55 PM EXHIBIT SPECIALIST Narrative [facility] - 04/01/2024 10:14 PM EXHIBIT SPECIALIST Therapeutic Range 2.0-3.0 for most anticoagulated patients 2.5-3.5 or 4.0 for high risk patients The INR is only used for patients on stable oral anticoagulant therapy. It makes no significant contribution to the diagnosis or treatment of patients whose Protime is prolonged for other reasons. INR results are increased when heparin levels exceed 1.0 U/mL, which corresponds to an aPTT >125 seconds if the patient is on UFH. [facility] HEMATOLOGY Final Result [facility] [address] [place] [address], [place] * COMP METABOLIC PANEL (04/01/2024 4:50 PM EXHIBIT SPECIALIST) SODIUM 136 135 - 146 mmol/L 04/02/2024 9:04 AM EXHIBIT SPECIALIST [facility] POTASSIUM 3.8 3.5 - 5.3 mmol/L 04/02/2024 9:04 AM EXHIBIT SPECIALIST [facility] CHLORIDE 105 98 - 110 mmol/L 04/02/2024 9:04 AM EXHIBIT SPECIALIST [facility] CARBON DIOXIDE 24 20 - 32 mmol/L 04/02/2024 9:04 AM EXHIBIT SPECIALIST [facility] GLUCOSE 65 65 - 99 mg/dL 04/02/2024 9:04 AM EXHIBIT SPECIALIST [facility] Comment: Fasting reference interval CALCIUM 9.4 8.6 - 10.2 mg/dL 04/02/2024 9:04 AM EXHIBIT SPECIALIST [facility] CREATININE 0.68 0.50 - 0.96 mg/dL 04/02/2024 9:04 AM EXHIBIT SPECIALIST [facility] BUN/CREATININE RATIO SEE NOTE: 6 - 22 (calc) 04/02/2024 9:04 AM EXHIBIT SPECIALIST [facility] Comment: Not Reported: BUN and Creatinine are within reference range. EGFR 122 > OR = 60 mL/min/1. 73m2 04/02/2024 9:04 AM EXHIBIT SPECIALIST [facility] ALBUMIN 4.3 3.6 - 5.1 g/dL 04/02/2024 9:04 AM EXHIBIT SPECIALIST [facility] PROTEIN, TOTAL 7.0 6.1 - 8.1 g/dL 04/02/2024 9:04 AM EXHIBIT SPECIALIST [facility] BILIRUBIN, TOTAL 0.4 0.2 - 1.2 mg/dL 04/02/2024 9:04 AM EXHIBIT SPECIALIST [facility] ALKALINE PHOSPHATASE 83 31 - 125 U/L 04/02/2024 9:04 AM EXHIBIT SPECIALIST [facility] ALT 26 6 - 29 U/L 04/02/2024 9:04 AM EXHIBIT SPECIALIST [facility] AST 20 10 - 30 U/L 04/02/2024 9:04 AM EXHIBIT SPECIALIST [facility] UREA NITROGEN (BUN) 13 7 - 25 mg/dL 04/02/2024 9:04 AM EXHIBIT SPECIALIST [facility] GLOBULIN 2.7 1.9 - 3.7 g/dL (calc) 04/02/2024 9:04 AM EXHIBIT SPECIALIST [facility] ALBUMIN/GLOBULI N RATIO 1.6 1.0 - 2.5 (calc) 04/02/2024 9:04 AM EXHIBIT SPECIALIST [facility] Blood BLOOD SPECIMEN / Unknown Non-Lab Venipuncture / Unknown 04/01/2024 4:50 PM EXHIBIT SPECIALIST 04/01/2024 5:10 PM EXHIBIT SPECIALIST [facility] Final Result Performing Organization Address [facility] de Phone Number [employer] [address] [address], [place] [phone] * APTT (04/01/2024 4:48 PM EXHIBIT SPECIALIST) [facility] PARTIAL THROMBOPLASTIN TIME, ACTIVATED 25 23 - 32 sec 04/02/2024 7:03 AM EXHIBIT SPECIALIST [facility] Comment: This test has not been validated for monitoring unfractionated heparin therapy. For testing that is validated for this type of therapy, please refer to the Heparin Anti-Xa assay (test code 43647). For additional information, please refer to http://education.[employer]/faq/PEG928 (This link is being provided for informational/educational purposes only.) Blood BLOOD SPECIMEN / Unknown Non-Lab Venipuncture / Unknown 04/01/2024 4:48 PM EXHIBIT SPECIALIST 04/01/2024 5:04 PM EXHIBIT SPECIALIST [employer] [facility] HEMATOLOGY Final Result Performing Organization Address [facility] de Phone Number [employer] [address] [address], [place] [phone] * HPV HIGH RISK (05/28/2022 12:00 PM CDT) [facility] TYPE 16 Negative Negative 06/03/2022 1:52 PM CDT [facility] TYPE 18 Negative Negative 06/03/2022 1:52 PM CDT [facility] OTHER HIGH RISK TYPES Negative Negative 06/03/2022 1:52 PM CDT [facility] Other (Cervical) 05/28/2022 12:00 PM CDT 05/30/2022 9:09 AM CDT Narrative [facility] - 06/03/2022 1:52 PM CDT HPV types 16, 18, 31, 33, 35, 39, 45, 51, 52, 56, 58, 59, 66 and 68 DNA were undetectable or below the pre-set threshold. Methodology: Walker Morgan 4800 HPV Test us Gloria AGUAYO MICROBIOLOGY Final Result [facility] [address] [place] [address], from Last 3 Months or Most Recently Relevant to Health Maintenance Insurance [facility] Care Teams Corporate Planner Relationship Specialty Start Date End Date Gilma Carlson NP [address] [place] [id number] PCP - General 04/01/24 Sim Trujillo [employer]BS [address] [place] [address] Nephrology 04/01/24 Melyssa Pagan, DAVIN [address] [place] [address] PRESS OFFBEARER Nurse Practitioner 04/01/24
[2024-04-12] MEDS: DOXYCYCLINE HYCLATE 100 MG 200 MG PO (09:30)
[2024-04-12] MEDS: SODIUM CHLORIDE 0.9 % (FLUSH) 10 ML SYRINGE IVF (09:35)
[2024-04-12] MEDS: 0.9 % SODIUM CHLORIDE 500 ML 500 ML 100 ML IV ×2 (09:36→11:20)
[2024-04-12 09:42] LABS: Hemoglobin* 13.9 gm/dL (12.0-16.0)
[2024-04-12] MEDS: DOXYCYCLINE HYCLATE 200 MG in 0.9 % SODIUM CHLORIDE 250 ml 250 ML 250 MG IVPB (10:15)
[2024-04-12] MEDS: MIDAZOLAM HCL 1 MG/ML inj 2 MG IVP (10:15)
[2024-04-12] MEDS: ONDANSETRON 2 MG/ML inj 4 MG IVP (10:15)
--- NOTE | 2024-04-12 10:19 | SUR.PREOP ---
Patient vomitted up the dose of PO Doxycycline, verbal order obtained from Dr. Toledo to administer IV Doxycycline. Verbal order also obtained by Dr. Mancia for Zofran and Versed. See eMAR for administration.
--- NOTE | 2024-04-12 10:28 | SUR.OPER ---
PATIENT QUESTIONS ANSWERED SATISFACTORILY PREOPERATIVELY. PATIENT BROUGHT TO OR #1 PER CART. Patient positioned supine on OR #1 bed.? Perioperative team supported arms bilaterally on arm boards.? Final approval of positioning by surgeon.
--- NOTE | 2024-04-12 10:39 | P.ANES_ITS ---
Anesthesia Charges Start Date/Time Anesthesia Start Date: 04/12/24 Anesthesia Start Time: 10:23 Stop Date/Time Anesthesia Stop Date: 04/12/24 Anesthesia Stop Time: 11:42 Coding CPT Codes CPT Codes: ANESTH INC/MISSED AB PROC - 74175 ([id number]) P2 - PATIENT W/MILD SYST DISEASE, QK - SENIOR USER EXPERIENCE ARCHITECT 2-4 CNCRNT ANES PROC, QX - AVIONICS REPAIR TECHNICIAN SVC W/ MD MED DIRECTION
--- NOTE | 2024-04-12 10:39 | W.ANESCHARGE ---
Anesthesia Charges Start Date/Time Anesthesia Start Date: 04/12/24 Anesthesia Start Time: 10:23 Stop Date/Time Anesthesia Stop Date: 04/12/24 Anesthesia Stop Time: 11:42 Coding CPT Codes CPT Codes: ANESTH INC/MISSED AB PROC - 30439 ([id number]) P2 - PATIENT W/MILD SYST DISEASE, QK - LEADING FIREFIGHTER 2-4 CNCRNT ANES PROC, QX - INDUSTRIAL MANAGEMENT TEACHER SVC W/ MD MED DIRECTION
[2024-04-12] MEDS: LIDOCAINE 1% MDV 20 ML INJECTION (10:48)
--- NOTE | 2024-04-12 11:43 | P.ANES_ITS ---
Anesthesia Charges Start Date/Time Anesthesia Start Date: 04/12/24 Anesthesia Start Time: 10:23 Stop Date/Time Anesthesia Stop Date: 04/12/24 Anesthesia Stop Time: 11:42 Coding CPT Codes CPT Codes: ANESTH VAGINAL PROCEDURES - 32552 ([id number]) P2 - PATIENT W/MILD SYST DISEASE, QK - SUPERINTENDENT FACTORY 2-4 CNCRNT ANES PROC, QX - MARINE WATER TENDER SVC W/ MD MED DIRECTION
--- NOTE | 2024-04-12 11:43 | W.ANESCHARGE ---
Anesthesia Charges Start Date/Time Anesthesia Start Date: 04/12/24 Anesthesia Start Time: 10:23 Stop Date/Time Anesthesia Stop Date: 04/12/24 Anesthesia Stop Time: 11:42 Coding CPT Codes CPT Codes: ANESTH VAGINAL PROCEDURES - 87407 ([id number]) P2 - PATIENT W/MILD SYST DISEASE, QK - BURRER MARKER AXLE 2-4 CNCRNT ANES PROC, QX - WOODWIND INSTRUMENTS INSPECTOR SVC W/ MD MED DIRECTION
--- NOTE | 2024-04-12 11:52 | W.PM.GYNPROC ---
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 Exam under anesthesia revealed a mobile, anteverted uterus that was consistent in size with 10 weeks' gestation. There are no palpable adnexal masses. 2. Upon ultrasound obtained intraoperatively, there was a abundant placental tissue posteriorly with a normal cystic appearance. At the end of the procedure the uterus appeared N/C with a thin endometrial stripe with no abnormal vascular flow. 3. Abundant products of conception returned with suction curettage. Complications: Anterior cervical laceration, repaired with a running suture of 0 Vicryl. Procedure in detail: Patient was taken to the operating with IV running. She had received a single oral dose of doxycycline in preoperative prophylaxis, but then had vomiting shortly thereafter, and was subsequently given an additional dose of IV doxycycline. She was placed in dorsal lithotomy position. Monitored anesthesia care was administered. She was prepped and draped in the usual sterile fashion. Exam under anesthesia was performed for the above-noted findings. Speculum was inserted. Cervix was grasped along its anterior lip with an Allis clamp. Paracervical block was performed with a total of 10 mL of 1% lidocaine. The cervix was serially dilated to 10 Polish after multiple attempts; the Allis clamp was insufficient in providing retraction needed for dilation. A single-toothed tenaculum was then used along the anterior lip of cervix, but ultimately tore through the cervix a few times anteriorly. Finally, an Allis clamp was placed along the posterior lip of the cervix. Initially, size 8 rigid suction cannula was passed through the cervix to the uterine fundus, but several passes with this failed to obtain any tissue. Thereafter, I switched to a size 10 rigid suction cannula. The procedure was completed with this device. Suction was applied, and the suction cannula was withdrawn along the path of insertion. This was repeated numerous times, with obvious return of abundant products of conception. Thereafter, sharp curettage was performed circumferentially, and a gritty texture was noted throughout. Ultrasound showed findings consistent with an evacuated uterus. Minimal tissue was obtained with curettings. The anterior cervical laceration was bleeding freely. This was a linear laceration along the majority of the anterior cervical lip. This was closed with a running lock suture of 0 Vicryl. Hemostasis was noted. Postoperative debrief was verbalized with OR staff, including a verification of pathology specimens to be sent as described above. Patient tolerated procedure well and was taken recovery area in stable condition.
--- NOTE | 2024-04-12 12:00 | W.PM.H&PU ---
History & Physical Update History & Physical Update H&P Reviewed and patient assessed: No changes noted
== END 2024-04-12 13:03 | disposition home or self-care (01) ==
LOC: OR 09:12
PROVIDERS: PCP Nurse Practitioner Family; Visit Provider Obstetrics & Gynecology
PROC: (CPT 59820; principal; 2024-04-12 10:30)
DX: O02.1 Missed abortion (principal); Z3A.10 10 weeks gestation of pregnancy; N99.71 Accidental puncture and laceration of a genitourinary system organ or structure during a genitourinary system procedure
CPT/HCPCS: 59820; 57720; 00940; 01965; 36415; 76998; 85018; 86850; 86900; 86901; 88271; 88274; 88305; J2003; A9270; J1100; J1885; J2250; J2405; J2704; J3010; J3490; J7030; J7050

== ENCOUNTER 2024-04-22 13:06 | Outpatient (CLI) | payer OTHER, SELFPAY | END 2024-04-22 13:07 | disposition home or self-care (01) | LOC: NFLDREF 04-23 13:31 | PROVIDERS: PCP Nurse Practitioner Family; Referring Provider Nurse Practitioner Family; Visit Provider Obstetrics & Gynecology | DX: O08.89 Other complications following an ectopic and molar pregnancy (principal) | CPT/HCPCS: 84702 ==

== ENCOUNTER 2024-04-29 08:09 | Outpatient (CLI) | payer OTHER, SELFPAY | END 2024-04-29 08:10 | disposition home or self-care (01) | LOC: NFLDREF 08:09 | PROVIDERS: PCP Nurse Practitioner Family; Visit Provider Obstetrics & Gynecology | DX: O08.89 Other complications following an ectopic and molar pregnancy (principal) | CPT/HCPCS: 84702 ==

== ENCOUNTER 2024-05-09 07:42 | Outpatient (CLI) | payer OTHER, SELFPAY | END 2024-05-09 07:43 | disposition home or self-care (01) | LOC: NFLDREF 05-10 03:25 | PROVIDERS: PCP Nurse Practitioner Family; Referring Provider Nurse Practitioner Family; Visit Provider Obstetrics & Gynecology | DX: O08.89 Other complications following an ectopic and molar pregnancy (principal) | CPT/HCPCS: 84702 ==

== ENCOUNTER 2024-05-16 07:40 | Outpatient (CLI) | payer OTHER, SELFPAY | END 2024-05-16 07:41 | disposition home or self-care (01) | LOC: NFLDREF 05-17 05:39 | PROVIDERS: PCP Nurse Practitioner Family; Referring Provider Nurse Practitioner Family; Visit Provider Obstetrics & Gynecology | DX: O08.89 Other complications following an ectopic and molar pregnancy (principal) | CPT/HCPCS: 84702 ==

== ENCOUNTER 2024-05-25 07:40 | Outpatient (CLI) | payer OTHER, SELFPAY | END 2024-05-25 07:41 | disposition home or self-care (01) | LOC: NFLDREF 05-27 07:33 | PROVIDERS: PCP Nurse Practitioner Family; Referring Provider Nurse Practitioner Family; Visit Provider Nurse Practitioner Family | DX: O08.89 Other complications following an ectopic and molar pregnancy (principal) | CPT/HCPCS: 84702 ==

== ENCOUNTER 2024-08-05 08:45 | Outpatient (CLI) | payer OTHER, SELFPAY | END 2024-08-05 08:46 | disposition home or self-care (01) | LOC: NFLDREF 08-08 20:46 | PROVIDERS: PCP Nurse Practitioner Family; Referring Provider Nurse Practitioner Family; Visit Provider Obstetrics & Gynecology | DX: O09.A1 Supervision of pregnancy with history of molar pregnancy, first trimester (principal) | CPT/HCPCS: 84702 ==

== ENCOUNTER 2024-08-09 15:44 | Outpatient (CLI) | payer OTHER, SELFPAY ==
--- NOTE | 2024-08-09 16:00 | CRLHL7_ITS ---
For Patients: As a result of the Cures Act, medical imaging exams and procedure reports are released immediately into your electronic medical record. You may view this report before your referring provider. If you have questions, please contact your health care provider. OB ULTRASOUND INDICATION: Elevated HCG. History of molar. TECHNIQUE: Real time grayscale imaging of the fetus was performed. Transabdominal. LMP: 06/04/2024. KM by LMP: 03/11/2025. GA: 9 w, 3 d. CRL: 2.7 cm. 9 w 4 d. KM: 03/10/2025. FHR: 173 BPM. Gestational sac: 4.6 cm. Appears within normal limits. Yolk sac: 3.5 mm. Appears within normal limits. Right ovary: Within normal limits. 3.1 x 1.4 x 1.7 cm. Left ovary: Within normal limits. 3.1 x 2 x 2.4 cm. CL. IMPRESSION: 1. Single living intrauterine measuring 9 weeks 4 days with sonographic due date 03/10/2025. 2. Subchorionic hemorrhage on the left measures 15 x 10 x 8 mm. 3. Corpus luteal cyst left ovary. Christiano Davis M.D. Diagnostic Radiologist [email or web address] CHARLI/yosef navas/Dictated by: Christiano Davis MD @ 08/10/2024 7:32:00 AM (Electronically Signed)
== END 2024-08-09 15:45 | disposition home or self-care (01) ==
LOC: US 15:44
PROVIDERS: PCP Nurse Practitioner Family; Visit Provider Obstetrics & Gynecology
DX: O20.9 Hemorrhage in early pregnancy, unspecified (principal); O34.81 Maternal care for other abnormalities of pelvic organs, first trimester; N83.12 Corpus luteum cyst of left ovary; Z3A.09 9 weeks gestation of pregnancy
CPT/HCPCS: 76801; 82565; 82570; 83021; 84156; 84450; 84460; 84520; 86592; 86703; 86704; 86706; 86762; 86787; 86803; 86850; 86900; 86901; 87086; 87340

== ENCOUNTER 2024-08-25 09:01 | Outpatient (CLI) | payer OTHER, SELFPAY | END 2024-08-25 09:02 | disposition home or self-care (01) | PROVIDERS: PCP Nurse Practitioner Family; Referring Provider Nurse Practitioner Family; Visit Provider Registered Nurse | DX: O99.211 Obesity complicating pregnancy, first trimester (principal); E66.01 Morbid (severe) obesity due to excess calories; Z68.41 Body mass index [BMI] 40.0-44.9, adult; Z3A.11 11 weeks gestation of pregnancy | CPT/HCPCS: 87491; 87591 ==

== ENCOUNTER 2024-10-05 13:44 | Outpatient (CLI) | payer OTHER, SELFPAY | END 2024-10-05 13:45 | disposition home or self-care (01) | LOC: NFLDREF 10-10 13:59 | PROVIDERS: PCP Nurse Practitioner Family; Referring Provider Nurse Practitioner Family; Visit Provider Midwife | DX: Z34.92 Encounter for supervision of normal pregnancy, unspecified, second trimester (principal); Z3A.17 17 weeks gestation of pregnancy | CPT/HCPCS: 84450 ==

== ENCOUNTER 2024-10-26 12:49 | Outpatient (CLI) | payer OTHER, SELFPAY ==
--- NOTE | 2024-10-26 13:00 | CRLHL7_ITS ---
For Patients: As a result of the 21st Century Cures Act, medical imaging exams and procedure reports are released immediately into your electronic medical record. You may view this report before your referring provider. If you have questions, please contact your health care provider. OB ULTRASOUND SURVEY LMP: 06/04/2024. KM by LMP: 03/11/2025. GA: 20 w, 4 d. INDICATION: anatomic survey. TECHNIQUE: Real time grayscale imaging of the fetus was performed. Evaluate anatomy. Transabdominal imaging performed. position: Vertex. Cervix: Visualized. Technique: Transabdominal. Length of closed cervix: 3.5 cm. Placenta/cord: Anterior. Technique: Transabdominal. Placenta tip to internal OS: 7.4 cm. Umbilical Cord: 3-vessel cord. Placenta insertion: Central. Amniotic Fluid: 3.4 cm SDP (greater than/equal to: 2- less than 8 cm). SURVEY: Observed Structures. Calvarium/Spine: Cerebellum: 1.9 cm, 19 w 2 d. Cisterna Magna: 6.5 mm. Nuchal Fold: 5.6 mm. Lateral Ventricle: 6.2 mm. CSP: Yes. Midline Falx: Yes. Choroid Plexus: Yes. Spine: See impression. Abdomen: Stomach: Yes. Abd Cord Insertion: Yes. Urinary Bladder: Yes. Kidneys: See impression. Diaphragm: Yes. Face: Nose/lips: Yes. Orbital view: Yes. Profile: Yes. Limbs: Upper Extremities: Yes. Lower Extremities: Yes. Hands: Yes. Feet: Yes. Vascular: 4-Chamber Heart: Yes. LVOT: Yes. RVOT: Yes. 3VV: Yes. 3VTV: Yes. BPD: 4.8 cm. 20 w, 4 d, 50.9 percent. HC: 17.9 cm. 20 w, 3 d, 32.5 percent. AC: 15.4 cm. 20 w, 4 d, 44.5 percent. FL: 3.4 cm. 20 w, 6 d, 49.3 percent. FL/AC ratio: 22.3 percent. HC/AC ratio: 1.2. heart rate: 150 bpm. age by this US: 20 w, 2 d. KM by this US: 03/13/2025. EFW: 368.1 g. Weight: 0 lbs. 13 oz. Percentile by KM: 49.6 percent. IMPRESSION: 1. Concordance of clinical and sonographic dating. 2. Incomplete visualization of the spine and kidneys due to position. Remainder of the anatomic survey is normal. Short-term follow-up recommended. Christiano Davis M.D. Diagnostic Radiologist [email or web address] CHARLI/yosef [email or web address]/Dictated by: Christiano Davis MD @ 10/26/2024 4:24:00 PM (Electronically Signed)
== END 2024-10-26 12:50 | disposition home or self-care (01) ==
LOC: US 12:49
PROVIDERS: PCP Nurse Practitioner Family; Visit Provider Midwife
DX: Z34.92 Encounter for supervision of normal pregnancy, unspecified, second trimester (principal); Z3A.20 20 weeks gestation of pregnancy
CPT/HCPCS: 76805

== ENCOUNTER 2024-11-29 15:43 | Outpatient (CLI) | payer OTHER, SELFPAY ==
--- NOTE | 2024-11-29 15:45 | CRLHL7_ITS ---
For Patients: As a result of the Century Cures Act, medical imaging exams and procedure reports are released immediately into your electronic medical record. You may view this report before your referring provider. If you have questions, please contact your health care provider. OB ULTRASOUND KM by LMP: 03/11/2025. GA: 25 w, 3 d. Single. Comparison: 10/26/2024, 08/09/2024. INDICATION: Follow-up missing anatomy (spine and kidneys). TECHNIQUE: Real time grayscale imaging of the fetus was performed. Transabdominal. CERVIX: Visualized. Measurement: 3.3 cm. POSITIONING: Transverse. AMNIOTIC FLUID: 5.4 cm. SDP (N: greater than 2 x 1 cm) PLACENTA: Technique: Transabdominal. PLACENTA POSITION: Anterior. DOPPLER: heart rate: 157 bpm. IMPRESSION: Normal spine and kidneys. Christiano Davis M.D. Diagnostic Radiologist [email or web address] CHARLI/yosef navas/Dictated by: Christiano Davis MD @ 11/30/2024 8:20:00 AM (Electronically Signed)
== END 2024-11-29 15:44 | disposition home or self-care (01) ==
LOC: US 15:43
PROVIDERS: PCP Nurse Practitioner Family; Visit Provider Advanced Practice Midwife
DX: Z36.2 Encounter for other antenatal screening follow-up (principal); Z3A.25 25 weeks gestation of pregnancy
CPT/HCPCS: 76816

== ENCOUNTER 2024-12-28 08:04 | Outpatient (CLI) | payer OTHER, SELFPAY | END 2024-12-28 08:05 | disposition home or self-care (01) | LOC: NFLDREF 12-31 16:28 | PROVIDERS: PCP Nurse Practitioner Family; Referring Provider Nurse Practitioner Family; Visit Provider Midwife | DX: Z34.92 Encounter for supervision of normal pregnancy, unspecified, second trimester (principal) | CPT/HCPCS: 86592 ==

== ENCOUNTER 2025-01-16 12:52 | Outpatient (CLI) | payer OTHER, SELFPAY ==
--- NOTE | 2025-01-16 13:00 | CRLHL7_ITS ---
For Patients: As a result of the Cures Act, medical imaging exams and procedure reports are released immediately into your electronic medical record. You may view this report before your referring provider. If you have questions, please contact your health care provider. OB ULTRASOUND KM by LMP: 03/11/2025. GA: 32 w, 2 d. Single. Comparison: Ultrasound 11/29/2024, 10/26/2024. INDICATION: Morbid obesity. TECHNIQUE: Real time grayscale imaging of the fetus was performed. Transabdominal. CERVIX: Not visualized. POSITIONING: Vertex. AMNIOTIC FLUID: 20.0 VIRGEN. 8.0 cm. SDP (N: greater than 2 x 1 cm) PLACENTA: Technique: Transabdominal. PLACENTA POSITION: Anterior. DOPPLER: heart rate: 150 bpm. BIOMETRY: BPD: 8.1 cm. 32 w, 4 d, 50.8%. HC: 29.4 cm. 32 w, 3 d, 18.9%. AC: 29.3 cm. 33 w, 2 d, 78.2%. FL: 6.2 cm. 32 w, 0 d, 30.6%. FL/AC ratio: 21.1%. HC/AC ratio: 1.0. EFW: 1g. Weight: 4 lbs., 8 oz. age by this US: 32 w, 4 d. KM by this US: 03/09/2025. Percentile by KM: 56.1%. IMPRESSION: 1. Amniotic fluid single deepest pocket 8.0 cm. VIRGEN 20.0 cm. 2. Sonographic gestational age 32 weeks 4 days and sonographic due date 03/09/2025. Good correlation with dates. Normal interval growth. 3. Estimated weight 56th percentile. Abdominal circumference 78th percentile. Christiano Davis M.D. Diagnostic Radiologist [email or web address] CHARLI/[email or web address] navas/Dictated by: Christiano Davis MD @ 01/16/2025 2:15:00 PM (Electronically Signed)
== END 2025-01-16 12:53 | disposition home or self-care (01) ==
LOC: US 12:52
PROVIDERS: PCP Nurse Practitioner Family; Visit Provider Midwife
DX: O99.213 Obesity complicating pregnancy, third trimester (principal); E66.01 Morbid (severe) obesity due to excess calories; Z68.41 Body mass index [BMI] 40.0-44.9, adult; Z3A.32 32 weeks gestation of pregnancy
CPT/HCPCS: 76816

== ENCOUNTER 2025-02-01 14:05 | Outpatient (CLI) | payer OTHER, SELFPAY ==
[2025-02-01 14:13] VITALS: PULSE 100; O2SAT 97
[2025-02-01 14:22] VITALS: BP 131/77; PULSE 100
--- NOTE | 2025-02-01 15:04 | PC.OBNST ---
NST Note NST Note Start: 02/01/25 14:13 Freq: ONCE Status: Active Protocol: Document 02/01/25 14:51 [facility] (Rec: 02/01/25 15:03 [facility] [id number]) NST Note 4 Para (# of births) 1 EDC 03/11/24 Gestational Age In 86 Weeks & 5 Days Weeks & Days Patient Presented Decreased movement with Complaint(s) of Reactive Yes Appropriate for Yes Gestational Age RN Shikha Preston RN Date 02/01/25 Reactive Yes Appropriate for Yes Gestational Age SRINI Arceo RN Date 02/01/25 OB NST charge Yes Complete NST Note Yes via Write Note The provider's electronic signature indicates the NST is reactive/appropriate for gestational age. *Note to provider: If an addendum is required, open the patient's chart and click on the note under the Nurse/Allied Health tab.
== END 2025-02-01 14:51 | disposition home or self-care (01) ==
LOC: OB OUT 14:06 → OB 14:06
PROVIDERS: PCP Nurse Practitioner Family; Visit Provider Advanced Practice Midwife
DX: O36.8130 Decreased fetal movements, third trimester, not applicable or unspecified (principal); Z3A.34 34 weeks gestation of pregnancy
CPT/HCPCS: 59025; G0463

== ENCOUNTER 2025-02-08 13:33 | Outpatient (CLI) | payer OTHER, SELFPAY | END 2025-02-08 13:34 | disposition home or self-care (01) | LOC: NFLDREF 02-13 07:53 | PROVIDERS: PCP Nurse Practitioner Family; Referring Provider Nurse Practitioner Family; Visit Provider Advanced Practice Midwife | DX: Z34.93 Encounter for supervision of normal pregnancy, unspecified, third trimester (principal) | CPT/HCPCS: 87081; 87653 ==

== ENCOUNTER 2025-02-17 14:05 | Outpatient (CLI) | payer OTHER, SELFPAY ==
--- NOTE | 2025-02-17 14:00 | CRLHL7_ITS ---
For Patients: As a result of the Century Cures Act, medical imaging exams and procedure reports are released immediately into your electronic medical record. You may view this report before your referring provider. If you have questions, please contact your health care provider. OB ULTRASOUND INDICATION: Morbid obesity. LMP: 06/04/2024. KM by LMP/US: 03/11/2025. GA: 36 w, 6 d. Single. COMPARISON: 01/16/2025, 12/28/2024, 12/23/2024. TECHNIQUE: Real time prather scale imaging of the fetus was performed. Transabdominal imaging performed. CERVIX: Not visualized. POSITIONING: Vertex. AMNIOTIC FLUID: 7.7 cm SDP (N: greater than 2 x 1 cm). BIOPHYSICAL PROFILE: Gross body movements: 2. tone: 2. Respiratory activity: 2. Amniotic fluid: 2. SDP (N: greater than 2 x 1 cm) Total score: 8. PLACENTA: Technique: Transabdominal. PLACENTA POSITION: Anterior. DOPPLER: heart rate: 163 bpm. IMPRESSION: Normal biophysical profile 09/30. Christiano Davis M.D. Diagnostic Radiologist [email or web address] DAYANA/Dictated by: Christiano Davis MD @ 02/19/2025 1:45:00 PM (Electronically Signed)
== END 2025-02-17 14:06 | disposition home or self-care (01) ==
LOC: US 14:05
PROVIDERS: PCP Nurse Practitioner Family; Visit Provider Midwife
DX: O99.213 Obesity complicating pregnancy, third trimester (principal); E66.01 Morbid (severe) obesity due to excess calories; Z68.41 Body mass index [BMI] 40.0-44.9, adult; Z3A.36 36 weeks gestation of pregnancy
CPT/HCPCS: 76819